=== PATIENT | male | born 1935 | race Caucasian/White ===

== ENCOUNTER 2019-08-01 12:13 | Outpatient (CLI) | payer BC, SELFPAY ==
[2019-08-01 12:50] LABS: Basophils % 0.5 %; Eosinophils % 0.2 %; Hematocrit 46.8 % (42.0-52.0); Hemoglobin 14.6 g/dL (11.7-16.6); Lymphocytes # 0.9 10^3/uL (0.8-4.8); Lymphocytes % 11.3 %; Mean Corpuscular HGB Conc 31.2 g/dL (30.0-36.0); Mean Corpuscular Hemoglobin 29.5 pg (28.0-34.0); Mean Corpuscular Volume 94.5 fL (80-94); Mean Platelet Volume 10.3 fL (7.4-10.4); Monocytes # 0.4 10^3/uL (0.2-0.9); Monocytes % 4.3 %; Neutrophils # 6.8 10^3/uL (1.8-7.7); Neutrophils % 83.3 %; Nucleated Red Blood Cells % 0 %; Platelet Count 175 10^3/cmm (130-400); Red Blood Count 4.95 10^6/uL (4.1-5.3); Red Cell Distribution Width 13.7 % (12.1-15.1); White Blood Count 8.2 10^3/uL (4.0-10.0)
[2019-08-01 13:32] LABS: Alanine Aminotransferase 16 U/L (0-41); Albumin Level 3.4 g/dL (3.5-5.2); Alkaline Phosphatase 73 IU/L (40-130); Aspartate Amino Transferase 17 U/L (0-40); Blood Urea Nitrogen 19 mg/dL (8-23); Calcium 9.3 mg/dL (8.5-10.5); Carbon Dioxide 22 mmol/L (22-29); Chloride 102 mmol/L (98-107); Free T4 Free Thyroxine 1.25 ng/dL (0.82-1.77); Globulin 3.2 g/dL (1.3-4.6); Glucose 251 mg/dL (65-115); Sodium 138 mmol/L (136-145); Thyroid Stimulating Hormone 2.38 uIU/mL (0.27-4.20); Total Bilirubin 0.3 mg/dL (0.15-1.2); Total Protein 6.6 g/dL (6.6-8.7)
== END 2019-08-01 12:14 | disposition home or self-care (01) ==
LOC: LAB 12:18
PROVIDERS: Family Provider Family Medicine; PCP Family Medicine; Visit Provider Family Medicine
DX: I10 Essential (primary) hypertension (principal)
CPT/HCPCS: 80053; 84439; 84443; 85025

== ENCOUNTER 2020-02-15 10:00 | Inpatient (IN) | payer MEDICARE, MEDICAID, SELFPAY ==
[2020-02-15] VITALS (10 sets, daily range): BP systolic 98–138; BP diastolic 52–98; PULSE 90–109; RESP 18–24; TEMP 36.4–37.3; O2SAT 94–99
--- NOTE | 2020-02-15 10:18 | XRR_ITS ---
PROCEDURE INFORMATION: Exam: XR Chest, 1 View Exam date and time: 02/15/2020 11:22 AM Age: 84 years old Clinical indication: Dyspnea; Additional info: Fall; SOB TECHNIQUE: Imaging protocol: XR of the chest Views: 1 view. COMPARISON: CR Chest 1 [place] [id number] 07/04/2017 9:03 AM FINDINGS: Lungs: Bilateral interstitial thickening, no acute consolidation. Pleural space: Unremarkable. No pleural effusion. No pneumothorax. Heart/Mediastinum: Minimal cardiomegaly versus magnification of the cardiac silhouette. Bones/joints: Old left clavicle fracture. XR/XR chest 1V portable [id number] IMPRESSION: No acute findings.
--- NOTE | 2020-02-15 10:19 | ECG_ITS ---
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 Measurements Intervals [place] Rate: 99 P: 71 ID: [id number] QRS: -20 QRSD: 158 T: 113 QT: 393 QTc: 506 Interpretive Statements SINUS RHYTHM LEFT BUNDLE BRANCH BLOCK [120+ ms QRS DURATION, 80+ ms Q/S IN V1/V2, 85+ ms R IN I/aVL/V5/V6] Compared to ECG 07/04/2017 08:47:41 Sinus tachycardia no longer present Electronically Signed On 02-15-2020 13:14:56 CDT by Denisse Lee M.D. [id number]
--- NOTE | 2020-02-15 10:20 | ED_ITS ---
HPI - General Adult General: Chief complaint: Fall Stated complaint: HEAD LAC S/P FALL Time Seen by Provider: 02/15/20 10:02 Source: patient, family and EMS Mode of arrival: EMS Limitations: altered mental status (dementia per ) History of Present Illness: HPI narrative: Patient is an 84-year-old male who presents to ED today via EMS for evaluation following a fall. There is conflicting stories between EMS and the . Upon arrival EMS gave report that patient had fallen out of his chair last night and then laid on the floor all night and was found by his this morning. When arrives, she tells me this is an accurate and patient fell this morning while trying to transfer out of his chair. He did strike his head but there was no LOC. Patient overall aroldo ears to be in poor health. states he has not seen a provider in over a year-states he refuses most medical care. She reports a history of CHF and HTN. Patient is alert and oriented to state, city, hospital, name, but not to date. states she suspects her has baseline dementia although this is not formally been diagnosed. Associated symptoms: Reports dyspnea and rash; Deny chest pain, headache(s), malaise, nausea, palpitations, syncope or vomiting Review of Systems Const: Denies: fever(s), chills, body aches, fatigue or malaise Eyes: Denies: change in vision or blurry vision ENMT: Denies: odynophagia Card: Reports: swelling of feet/ankles, dyspnea on exertion and orthopnea; Denies: chest pain, palpitations, irregular heart rhythm, edema, lightheadedness, syncope or pre-syncope Resp: Reports: dyspnea; Denies: productive cough, non-productive cough, pain on inspiration, change in phlegm color, hemoptysis or chest congestion GI: Denies: abdominal pain, nausea, vomiting or diarrhea : Denies: flank pain, difficulty urinating, dysuria, urinary frequency or urinary urgency Musc: Denies: neck pain, back pain, extremity pain, extremity swelling, joint pain or joint swelling Skin/Breast: Reports: rash Neuro: Reports: difficulty walking; Denies: headache(s), numbness in extremities, weakness in extremities or sensory changes Physical Exam Const: COMMON NORMALS: alert GENERAL APPEARANCE: cooperative NUTRITIONAL APPEARANCE: obese morbidly obese ORIENTATION/CONSCIOUSNESS: Yes awake, Yes oriented to person and Yes oriented to place OTHER: odorous HENMT: COMMON NORMALS: normocephalic, hearing grossly normal bilaterally, EAC's normal and TM's normal bilaterally HEAD & SCALP: normocephalic and other (mild abrasion to R occipital scalp) FACE & SINUS: normal facial exam and sinuses nontender EXTERNAL AUDITORY CANAL: EAC's normal TYMPANIC MEMBRANE: TM's normal bilaterally Eye: COMMON NORMALS: Equal, round and reactive pupils present, EOMs intact bilaterally, conjunctivae normal and no scleral icterus GENERAL EYE: appearance normal, both eyes and all related structures CONJUNCTIVA: Yes conjunctivae normal PUPIL: Yes Equal, round and reactive pupils present Neck/C-Spine: COMMON NORMALS: full ROM CERVICAL SPINE: Yes cervical ROM normal, No pain with cervical ROM and No Cervical spine tenderness Chest: COMMONS NORMALS: normal palpation of entire chest wall OTHER: small areas of ecchymosis noted to upper back and overlying R scapula; does not appear tender Resp: EFFORT & INSPECTION: Yes labored, Yes uses accessory muscles and Yes audible wheezes AUSCULTATION: wheezes scattered wheezes and throughout OTHER: states patient always breathes like this Cardio: COMMON NORMALS: regular rhythm RATE: tachycardic (mild) RHYTHM: regular rhythm GI: COMMON NORMALS: Normal to inspection, nondistended, normoactive bowel sounds present, Soft to palpation and non-tender PALPATION: Yes Soft to palpation OTHER: exam limited due to body habitus Extremity: OTHER: 2+ pitting edema to bilateral LEs Neuro: SHAHLA COMA SCALE: document GCS findings Shahla coma scale eye opening: Spontaneous [place] coma scale verbal response: Orientated Shahla coma scale motor response: Obey commands [place] coma scale total score: 15 COMMON NORMALS: CN's II-XII intact bilaterally, moves all extremities, no focal motor deficits and no sensory deficits noted SENSORIUM/ORIENTATION: Yes alert, Yes oriented to person and Yes oriented to place GAIT: Yes Unable to assess gait Skin: NARRATIVE SKIN EXAM: scattered ecchymosis to UEs and abdomen Course Vital Signs: Vital signs: Vital Signs Temperature 99.1 F 02/15/20 10:06 Pulse Rate 108 H 02/15/20 13:31 Respiratory Rate 18 02/15/20 13:31 Blood Pressure 138/77 02/15/20 13:31 Pulse Oximetry 96 02/15/20 13:31 MDM - General Adult MDM Narrative: Medical decision making narrative: Patient overall and very poor health. Clinically he is vastly fluid overloaded. He has a BNP of over 8000. Cardiomegaly noted on CXR. He was noted to be hypoxic on room air. He has a glucose of 182 with no established diagnosis of diabetes. Overall patient would benefit from hospitalization. Dr. Mccallum is also seen patient and agrees with plan. He will speak to the hospitalist for admission. Lab Data: Labs: Lab Results 02/15/20 02/15/20 02/15/20 Range/Units 10:28 10:58 11:09 WBC 12.2 H (4.0-10.0) 10^3/ uL RBC 4.66 (4.1-5.3) 10^6/u L Hgb 13.0 (11.7-16.6) g/dL Hct 44.2 (42.0-52.0) % MCV 94.8 H (80-94) fL MCH 27.9 L (28.0-34.0) pg MCHC 29.4 L (30.0-36.0) g/dL RDW 14.8 (12.1-15.1) % Plt Count 186 (130-400) 10^3/c mm MPV 10.3 (7.4-10.4) fL Neut % (Auto) 87.2 % Lymph % (Auto) 5.7 % [place] % (Auto) 6.1 % Eos % (Auto) 0.1 % Baso % (Auto) 0.2 % Neut # (Auto) 10.63 H (1.8-7.7) 10^3/u L Lymph # (Auto) 0.7 L (0.8-4.8) 10^3/u L [place] # (Auto) 0.7 (0.2-0.9) 10^3/u L Eos # (Auto) 0.0 (0.0-0.8) 10^3/u L Baso # (Auto) 0.0 (0.0-0.1) 10^3/u L Nucleated RBC % (a uto) 0 % Nucleated RBCs # 0.0 /100WBC PT (12.1-14.9) SECO NDS INR (0.8-1.2) APTT (23.9-36.7) SECO NDS Specimen Type Arterial Sample Site Radial, left ABG pH 7.45 (7.35-7.45) ABG pCO2 42.1 (35-45) mmHg ABG pO2 68.3 L (80.0-100.0) mmH g ABG HCO3 29.0 H (22-26) mmol/L ABG O2 Saturation 95.4 ABG Base Excess 4.5 H (-2.0-2.0) mmol/ L Abdullahi Test Pos A-a O2 Gradient 4.1 L (5-10) mmHg Hematocrit 41.4 L (42-52) % Hgb O2 Saturation 93.3 L (95-100) % Carboxyhemoglobin 1.5 (0.4-20.1) %THgb Methemoglobin 0.8 (0.4-1.5) % Total Hemoglobin 13.5 L (14-18) g/dL Sodium 141.0 (131-143) mmol/L Potassium 3.9 (3.5-5.0) mmol/L Glucose 189.0 H (70-115) mg/dL Ionized Calcium 1.2 (1.1-1.4) mmol/L O2 Delivery Device Room air On Site Services Specialist ID Gd Chloride (98-107) mmol/L Carbon Dioxide (22-29) mmol/L Anion Gap (5-19) BUN (8-23) mg/dL Creatinine (0.7-1.2) mg/dL GFR Calculation Calculated Osmolal ity (285-295) mOsm/k g Lactic Acid (0.5-2.2) mmol/L Calcium (8.5-10.5) mg/dL Total Bilirubin (0.15-1.2) mg/dL AST (0-40) U/L ALT (0-41) U/L Alkaline Phosphata se (40-130) IU/L Creatine Kinase (39-308) U/L Troponin T Baselin e (0-15) ng/L Troponin T 120 Min seminole (0-15) ng/L Delta Troponin T (0-10) ABS# NT-Pro-B Natriuret Pep (0-450) pg/mL Total Protein (6.6-8.7) g/dL Albumin (3.5-5.2) g/dL Globulin (1.3-4.6) g/dL Urine Color Dark yellow (Yellow) Urine Appearance Hazy A (CLEAR) Urine pH 5 (5-7) Ur Specific Gravit y 1.020 (1.005-1.030) Urine Protein Neg (Negative) Urine Glucose (UA) Norm (Normal) Urine Ketones 1+ H (Negative) Urine Blood 2+ H (Negative) Urine Nitrate Negative (Negative) Urine Bilirubin 1+ H (NEGATIVE) Urine Urobilinogen 4 H (Negative) mg/dL Ur Leukocyte Maria Alejandra ase Negative (Negative) Urine RBC 0-4 H (0-2) /hpf Urine WBC None (0-5) /hpf Ur Squamous Epith Cells None (0-5) Amorphous Sediment Not Reportable Urine Bacteria Trace (NONE) Urine Mucus 2+ 02/15/20 02/15/20 02/15/20 Range/Units 11:09 11:09 11:09 WBC (4.0-10.0) 10^3/ uL RBC (4.1-5.3) 10^6/u L Hgb (11.7-16.6) g/dL Hct (42.0-52.0) % MCV (80-94) fL MCH (28.0-34.0) pg MCHC (30.0-36.0) g/dL RDW (12.1-15.1) % Plt Count (130-400) 10^3/c mm MPV (7.4-10.4) fL Neut % (Auto) % Lymph % (Auto) % [place] % (Auto) % Eos % (Auto) % Baso % (Auto) % Neut # (Auto) (1.8-7.7) 10^3/u L Lymph # (Auto) (0.8-4.8) 10^3/u L [place] # (Auto) (0.2-0.9) 10^3/u L Eos # (Auto) (0.0-0.8) 10^3/u L Baso # (Auto) (0.0-0.1) 10^3/u L Nucleated RBC % (a uto) % Nucleated RBCs # /100WBC PT (12.1-14.9) SECO NDS INR (0.8-1.2) APTT (23.9-36.7) SECO NDS Specimen Type Sample Site ABG pH (7.35-7.45) ABG pCO2 (35-45) mmHg ABG pO2 (80.0-100.0) mmH g ABG HCO3 (22-26) mmol/L ABG O2 Saturation ABG Base Excess (-2.0-2.0) mmol/ L Abdullahi Test A-a O2 Gradient (5-10) mmHg Hematocrit (42-52) % Hgb O2 Saturation (95-100) % Carboxyhemoglobin (0.4-20.1) %THgb Methemoglobin (0.4-1.5) % Total Hemoglobin (14-18) g/dL Sodium 139 (131-143) mmol/L Potassium 3.9 (3.5-5.0) mmol/L Glucose 182 H (70-115) mg/dL Ionized Calcium (1.1-1.4) mmol/L O2 Delivery Device On Site Services Specialist ID Chloride 101 (98-107) mmol/L Carbon Dioxide 29 (22-29) mmol/L Anion Gap 12.9 (5-19) BUN 18 (8-23) mg/dL Creatinine 1.0 (0.7-1.2) mg/dL GFR Calculation Not Reportable Calculated Osmolal ity 289 (285-295) mOsm/k g Lactic Acid 1.9 (0.5-2.2) mmol/L Calcium 9.0 (8.5-10.5) mg/dL Total Bilirubin 0.8 (0.15-1.2) mg/dL AST 15 (0-40) U/L ALT 14 (0-41) U/L Alkaline Phosphata se 96 (40-130) IU/L Creatine Kinase 54 (39-308) U/L Troponin T Baselin e 69 H (0-15) ng/L Troponin T 120 Min seminole (0-15) ng/L Delta Troponin T (0-10) ABS# NT-Pro-B Natriuret Pep 8355 H (0-450) pg/mL Total Protein 6.3 L (6.6-8.7) g/dL Albumin 3.1 L (3.5-5.2) g/dL Globulin 3.2 (1.3-4.6) g/dL Urine Color (Yellow) Urine Appearance (CLEAR) Urine pH (5-7) Ur Specific Gravit y (1.005-1.030) Urine Protein (Negative) Urine Glucose (UA) (Normal) Urine Ketones (Negative) Urine Blood (Negative) Urine Nitrate (Negative) Urine Bilirubin (NEGATIVE) Urine Urobilinogen (Negative) mg/dL Ur Leukocyte Maria Alejandra ase (Negative) Urine RBC (0-2) /hpf Urine WBC (0-5) /hpf Ur Squamous Epith Cells (0-5) Amorphous Sediment Urine Bacteria (NONE) Urine Mucus 02/15/20 02/15/20 Range/Units 11:09 13:13 WBC (4.0-10.0) 10^3/ uL RBC (4.1-5.3) 10^6/u L Hgb (11.7-16.6) g/dL Hct (42.0-52.0) % MCV (80-94) fL MCH (28.0-34.0) pg MCHC (30.0-36.0) g/dL RDW (12.1-15.1) % Plt Count (130-400) 10^3/c mm MPV (7.4-10.4) fL Neut % (Auto) % Lymph % (Auto) % [place] % (Auto) % Eos % (Auto) % Baso % (Auto) % Neut # (Auto) (1.8-7.7) 10^3/u L Lymph # (Auto) (0.8-4.8) 10^3/u L [place] # (Auto) (0.2-0.9) 10^3/u L Eos # (Auto) (0.0-0.8) 10^3/u L Baso # (Auto) (0.0-0.1) 10^3/u L Nucleated RBC % (a uto) % Nucleated RBCs # /100WBC PT 14.40 (12.1-14.9) SECO NDS INR 1.08 (0.8-1.2) APTT 28.5 (23.9-36.7) SECO NDS Specimen Type Sample Site ABG pH (7.35-7.45) ABG pCO2 (35-45) mmHg ABG pO2 (80.0-100.0) mmH g ABG HCO3 (22-26) mmol/L ABG O2 Saturation ABG Base Excess (-2.0-2.0) mmol/ L Abdullahi Test A-a O2 Gradient (5-10) mmHg Hematocrit (42-52) % Hgb O2 Saturation (95-100) % Carboxyhemoglobin (0.4-20.1) %THgb Methemoglobin (0.4-1.5) % Total Hemoglobin (14-18) g/dL Sodium (131-143) mmol/L Potassium (3.5-5.0) mmol/L Glucose (70-115) mg/dL Ionized Calcium (1.1-1.4) mmol/L O2 Delivery Device On Site Services Specialist ID Chloride (98-107) mmol/L Carbon Dioxide (22-29) mmol/L Anion Gap (5-19) BUN (8-23) mg/dL Creatinine (0.7-1.2) mg/dL GFR Calculation Calculated Osmolal ity (285-295) mOsm/k g Lactic Acid (0.5-2.2) mmol/L Calcium (8.5-10.5) mg/dL Total Bilirubin (0.15-1.2) mg/dL AST (0-40) U/L ALT (0-41) U/L Alkaline Phosphata se (40-130) IU/L Creatine Kinase (39-308) U/L Troponin T Baselin e (0-15) ng/L Troponin T 120 Min [place]ole 59.52 H (0-15) ng/L Delta Troponin T -9.48 L (0-10) ABS# NT-Pro-B Natriuret Pep (0-450) pg/mL Total Protein (6.6-8.7) g/dL Albumin (3.5-5.2) g/dL Globulin (1.3-4.6) g/dL Urine Color (Yellow) Urine Appearance (CLEAR) Urine pH (5-7) Ur Specific Gravit y (1.005-1.030) Urine Protein (Negative) Urine Glucose (UA) (Normal) Urine Ketones (Negative) Urine Blood (Negative) Urine Nitrate (Negative) Urine Bilirubin (NEGATIVE) Urine Urobilinogen (Negative) mg/dL Ur Leukocyte Maria Alejandra ase (Negative) Urine RBC (0-2) /hpf Urine WBC (0-5) /hpf Ur Squamous Epith Cells (0-5) Amorphous Sediment Urine Bacteria (NONE) Urine Mucus Imaging Data^: CT Head: Radiologist's impression: [place] [address] CT Scan Report Signed Patient: Yesi Campos Unit #: [id number] : 1935 Age/Sex: 84 / M ADM Date: 02/15/20 Loc: ER Room/Bed: Attending Dr: Ordering Provider/Ordering MD: Penny Padilla Date of Service: 02/15/20 Procedure(s): CT head wo con* [id number] Accession Number(s): [id number] Report Number: [id number] PROCEDURE INFORMATION: Exam: CT Head Without Contrast Exam date and time: 02/15/2020 10:19 AM Age: 84 years old Clinical indication: Injury or trauma; Fall; Initial encounter; Blunt trauma (contusions or hematomas); Consciousness not specified; Injury date: This morning; Additional info: Trauma/fall TECHNIQUE: Imaging protocol: Computed tomography of the head without contrast. Radiation optimization: All CT scans at this facility use at least one of these dose optimization techniques: automated exposure control; mA and/or kV adjustment per patient size (includes targeted exams where dose is matched to clinical indication); or iterative reconstruction. COMPARISON: [place] [facility] [place] [id number] 04/12/2017 8:34 AM RADIATION DOSE METRICS: Total DLP (mGy-cm): 839.2 FINDINGS: Brain: No hemorrhage. Unremarkable white matter. No mass effect. Ventricles: Normal. No ventriculomegaly. Bones/joints: Postoperative change in the left skull. No acute fracture. Sinuses: No acute sinusitis. Mastoid air cells: Unremarkable. Soft tissues: Unremarkable. CT/CT head wo con* [id number] IMPRESSION: No acute intracranial abnormality. Radiation Dose CTDIVOL = (mGy): DLP = 839.2 (mGy-cm) Dictated By: Jamie Bonds MD Signed By: Jamie Bonds MD Signed Date/Time: 02/15/20 125 DD/ 57 CT cervical : Radiologist's impression: [address] [address] [address] Scan Report Signed Patient: Yesi Campos Unit #: [id number] : 1935 Age/Sex: 84 / M ADM Date: 02/15/20 Loc: ER Room/Bed: Attending Dr: Ordering Provider/Ordering MD: Penny Padilla Date of Service: 02/15/20 Procedure(s): CT cervical spin wo con* [id number] Accession Number(s): [id number] Report Number: [id number] PROCEDURE INFORMATION: Exam: CT Cervical Spine Without Contrast Exam date and time: 02/15/2020 10:19 AM Age: 84 years old Clinical indication: Injury or trauma; Fall; Initial encounter; Blunt trauma; Injury date: This morning; Additional info: Fall/trauma TECHNIQUE: Imaging protocol: Computed tomography images of the cervical spine without contrast. Radiation optimization: All CT scans at this facility use at least one of these dose optimization techniques: automated exposure control; mA and/or kV adjustment per patient size (includes targeted exams where dose is matched to clinical indication); or iterative reconstruction. COMPARISON: No relevant prior studies available. RADIATION DOSE METRICS: Total DLP (mGy-cm): 908.12 FINDINGS: Vertebrae: No acute fracture. Normal alignment. Discs/Spinal canal/Neural foramina: Multilevel degenerative disc disease, multilevel foraminal stenosis. Degenerative facet change. Soft tissues: Unremarkable. Lungs: Lung apices are normal. CT/CT cervical spin wo con* [id number] IMPRESSION: No cervical spine fracture. Radiation Dose CTDIVOL = (mGy): DLP = 908.12 (mGy-cm) Dictated By: Jamie Bonds MD Signed By: Jamie Bonds MD Signed Date/Time: 02/15/20 1304 DD/ 1302 CTA chest : Radiologist's impression: [place] [address] CT Scan Report Signed Patient: Yesi Campos Unit #: [id number] : 1935 Age/Sex: 84 / M ADM Date: 02/15/20 Loc: ER Room/Bed: Attending Dr: Ordering Provider/Ordering MD: Penny Padilla Date of Service: 02/15/20 Procedure(s): CT angio chest PE protcl [id number] Accession Number(s): [id number] Report Number: [id number] PROCEDURE INFORMATION: Exam: CT Angiography Chest With Contrast Exam date and time: 02/15/2020 12:22 PM Age: 84 years old Clinical indication: Shortness of breath; Additional info: SOB, cardiomegaly, chf; Possible mass on cxr TECHNIQUE: Imaging protocol: Computed tomographic angiography of the chest with intravenous contrast. 3D rendering (Not supervised by radiologist): MIP and/or 3D reconstructed images were created by the technologist. Radiation optimization: All CT scans at this facility use at least one of these dose optimization techniques: automated exposure control; mA and/or kV adjustment per patient size (includes targeted exams where dose is matched to clinical indication); or iterative reconstruction. Contrast material: OMNIPAQUE 350; Contrast volume: 95 ml; Contrast route: INTRAVENOUS (IV); COMPARISON: [place] [id number] 03/29/2017 2:56 PM RADIATION DOSE METRICS: Total DLP (mGy-cm): 589.95 FINDINGS: Pulmonary arteries: No pulmonary emboli. Aorta: No aortic aneurysm. Lungs: Unremarkable. No consolidation. No masses. Pleural space: No pleural effusion. No pneumothorax. Heart: Minimal cardiomegaly. No pericardial effusion. Lymph nodes: No significant adenopathy. Bones/joints: No acute findings. Soft tissues: 2.5 cm subcutaneous mass in the left upper anterior chest wall, increased from 03/29/2017, correlate with exam. CT/CT angio chest PE protcl [id number] IMPRESSION: No mass or acute findings. Additional findings as above. Radiation Dose CTDIVOL = (mGy): DLP = 589.95 (mGy-cm) Dictated By: Jamie Bonds MD Signed By: Jamie Bonds MD Signed Date/Time: 02/15/20 1303 DD/ 1302 EKG Data^: EKG 1: EKG interpretation date: 02/15/20 EKG interpretation time: 10:35 Interpretation: Sinus rhythm Rate 99 LBBB No acute changes from EKG performed on 06/2017 Computer generated interpretation: Cervical Spine CT 02/15/20 10:18 IMPRESSION: No cervical spine fracture. Radiation Dose CTDIVOL = (mGy): DLP = 908.12 (mGy-cm) Chest X-Ray 02/15/20 10:18 IMPRESSION: No acute findings. Head CT 02/15/20 10:18 IMPRESSION: No acute intracranial abnormality. Radiation Dose CTDIVOL = (mGy): DLP = 839.2 (mGy-cm) Chest CTA 02/15/20 12:21 IMPRESSION: No mass or acute findings. Additional findings as above. Radiation Dose CTDIVOL = (mGy): DLP = 589.95 (mGy-cm) Discharge Plan Discharge Patient Disposition: Admitted As Inpatient Clinical Impression: Blood glucose elevated, Hypoxia Congestive heart failure Qualifiers: Heart failure type: unspecified Heart failure chronicity: acute on chronic Qualified Code(s): I50.9 - Heart failure, unspecified Condition: Stable Referrals: Jimbo López MD [Primary Care Provider] - Coding Level of Care Code ED Tax Manager for Chg Fwd Exam Comprehensive
[2020-02-15 10:43] LABS: ABG PCO2 42.1 mmHg (35-45); ABG PH Result 7.45 (7.35-7.45); Alveolar-Arterial Oxygen Gradi 4.1 mmHg (5-10); Arterial Blood Gas Hematocrit 41.4 % (42-52); Base Excess ABG 4.5 mmol/L (-2.0-2.0); Blood Gas Allen Test Pos; Blood Gas Operator Identificat GD; Blood Gas Sample Site Radial, left; Blood Gas Sample Type Arterial; Carboxyhemoglobin 1.5 %THgb (0.4-20.1); HGB O2 Sat 93.3 % (95-100); Ionized Calcium Level - ABG 1.2 mmol/L (1.1-1.4); Methemoglobin 0.8 % (0.4-1.5); Oxygen Device ROOM AIR; Oxygen Saturation ABG 95.4; PO2 ABG 68.3 mmHg (80.0-100.0); Potassium Level - ABG 3.9 mmol/L (3.5-5.0); Total Hemoglobin 13.5 g/dL (14-18)
[2020-02-15] MEDS: ipratropium-albuterol 3 mL Neb INHALATION (10:45)
--- NOTE | 2020-02-15 11:12 | PC.NURSE ---
Arrived soiled with urine and stool. Noted Severe cynthia rash with skin break down all in the groin and dinora area. Cleaned and reposition pt. Notifed Penny Padilla NP of pt skin condition
[2020-02-15 11:26] LABS: Basophils % 0.2 %; Eosinophils % 0.1 %; Hematocrit 44.2 % (42.0-52.0); Lymphocytes # 0.7 10^3/uL (0.8-4.8); Lymphocytes % 5.7 %; Mean Corpuscular HGB Conc 29.4 g/dL (30.0-36.0); Mean Corpuscular Hemoglobin 27.9 pg (28.0-34.0); Mean Corpuscular Volume 94.8 fL (80-94); Mean Platelet Volume 10.3 fL (7.4-10.4); Monocytes # 0.7 10^3/uL (0.2-0.9); Monocytes % 6.1 %; Neutrophils # 10.63 10^3/uL (1.8-7.7); Neutrophils % 87.2 %; Nucleated Red Blood Cells % 0 %; Platelet Count 186 10^3/cmm (130-400); Red Blood Count 4.66 10^6/uL (4.1-5.3); Red Cell Distribution Width 14.8 % (12.1-15.1); White Blood Count 12.2 10^3/uL (4.0-10.0)
[2020-02-15 11:40] LABS: Urine Appearance Hazy (CLEAR); Urine Color Dark Yellow (Yellow); pH Urine 5 (5-7)
[2020-02-15 11:41] LABS: Add Urine Microscopic? YES; Bilirubin Urine 1+ (NEGATIVE); Blood Urine 2+ (Negative); Glucose Urine UA Norm (Normal); Ketones Urine 1+ (Negative); Leukocyte Esterase Urine Negative (Negative); Nitrate Urine Negative (Negative); Protein Urine Neg (Negative); RBC Urine 0-4 /hpf (0-2); Urobilinogen Urine 4 mg/dL (Negative)
[2020-02-15 11:42] LABS: Add Urine Culture? No; Bacteria Urine TRACE; Mucus Urine 2+
[2020-02-15 11:51] LABS: Lactic Sepsis W/Reflex 1.9 mmol/L (0.5-2.2); Troponin(5th) Baseline 69 ng/L (0-15)
[2020-02-15 11:57] LABS: Alanine Aminotransferase 14 U/L (0-41); Albumin Level 3.1 g/dL (3.5-5.2); Alkaline Phosphatase 96 IU/L (40-130); Anion Gap 12.9 (5-19); Aspartate Amino Transferase 15 U/L (0-40); Blood Urea Nitrogen 18 mg/dL (8-23); Carbon Dioxide 29 mmol/L (22-29); Chloride 101 mmol/L (98-107); Creatine Phosphokinase 54 U/L (39-308); Globulin 3.2 g/dL (1.3-4.6); Glucose 182 mg/dL (65-115); NT Pro B Type Natriuretic Pept 8355 pg/mL (0-450); Osmolality Calculated 289 mOsm/kg (285-295); Potassium 3.9 mmol/L (3.5-5.1); Sodium 139 mmol/L (136-145); Total Bilirubin 0.8 mg/dL (0.15-1.2); Total Protein 6.3 g/dL (6.6-8.7)
--- NOTE | 2020-02-15 12:07 | PC.NURSE ---
Resting in room , no acute distress noted.
--- NOTE | 2020-02-15 12:19 | ECG_ITS ---
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 Measurements Intervals [place] Rate: 99 P: SD: -1 QRS: -25 QRSD: 158 T: 112 QT: 401 QTc: 517 Interpretive Statements UNCERTAIN REGULAR RHYTHM LEFT BUNDLE BRANCH BLOCK [120+ ms QRS DURATION, 80+ ms Q/S IN V1/V2, 85+ ms R IN I/aVL/V5/V6] Compared to ECG 02/15/2020 10:35:45 Sinus rhythm no longer present Electronically Signed On 02-18-2020 17:41:21 CDT by Denisse Lee M.D. [id number]
--- NOTE | 2020-02-15 12:21 | CTR_ITS ---
PROCEDURE INFORMATION: Exam: CT Angiography Chest With Contrast Exam date and time: 02/15/2020 12:22 PM Age: 84 years old Clinical indication: Shortness of breath; Additional info: SOB, cardiomegaly, chf; Possible mass on cxr TECHNIQUE: Imaging protocol: Computed tomographic angiography of the chest with intravenous contrast. 3D rendering (Not supervised by radiologist): MIP and/or 3D reconstructed images were created by the technologist. Radiation optimization: All CT scans at this facility use at least one of these dose optimization techniques: automated exposure control; mA and/or kV adjustment per patient size (includes targeted exams where dose is matched to clinical indication); or iterative reconstruction. Contrast material: OMNIPAQUE 350; Contrast volume: 95 ml; Contrast route: INTRAVENOUS (IV); COMPARISON: [place] [id number] 03/29/2017 2:56 PM RADIATION DOSE METRICS: Total DLP (mGy-cm): 589.95 FINDINGS: Pulmonary arteries: No pulmonary emboli. Aorta: No aortic aneurysm. Lungs: Unremarkable. No consolidation. No masses. Pleural space: No pleural effusion. No pneumothorax. Heart: Minimal cardiomegaly. No pericardial effusion. Lymph nodes: No significant adenopathy. Bones/joints: No acute findings. Soft tissues: 2.5 cm subcutaneous mass in the left upper anterior chest wall, increased from 03/29/2017, correlate with exam. CT/CT angio chest PE protcl [id number] IMPRESSION: No mass or acute findings. Additional findings as above. Radiation Dose CTDIVOL = (mGy): DLP = 589.95 (mGy-cm)
[2020-02-15] MEDS: iohexol 350 mg/mL 100 mL Btl IV (13:03)
[2020-02-15 13:39] LABS: Troponin 5 2HR 59.52 ng/L (0-15)
[2020-02-15 14:12] LABS: INR 1.08 (0.8-1.2)
[2020-02-15 14:13] LABS: Partial Thromboplastin Time 28.5 SECONDS (23.9-36.7)
[2020-02-15] MEDS: FUROsemide 10 mg/mL SDV 4mL 40 MG IVP (14:53)
[2020-02-15 15:32] LABS: SARS Covid-2 Antigen Negative (Negative)
--- NOTE | 2020-02-15 16:19 | ECG_ITS ---
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 Measurements Intervals [place] Rate: 103 P: 129 [place]: 207 QRS: -5 QRSD: 158 T: 115 QT: 392 QTc: 515 Interpretive Statements SINUS TACHYCARDIA WITH OCCASIONAL SUPRAVENTRICULAR PREMATURE COMPLEXES LEFT BUNDLE BRANCH BLOCK [120+ ms QRS DURATION, 80+ ms Q/S IN V1/V2, 85+ ms R IN I/aVL/V5/V6] Compared to ECG 02/15/2020 12:58:58 No significant changes Electronically Signed On 02-17-2020 8:29:43 CDT by Denisse eLe M.D. [id number]
[2020-02-15 17:48] LABS: Glucose Point of Care 163 mg/dL (70-110)
--- NOTE | 2020-02-15 17:48 | PM.HP ---
Providers/Chief Complaint Admitting Physician: Dang Carlos MD Primary Care Provider: Jimbo López MD Chief Complaint: HEAD LAC S/P FALL History of Present Illness Yesi Campos is a 84 year old male with past medical history significant for CAD, CHF with last known EF ~30% from echo in 2017, on lasix 20mg at home, osteoarthritis, hypertension, diverticulosis brought to ER today by his with h/o worsening dyspnea over the last 2-3 weeks. Today while trying to get out of his recliner ,patient fell over and was too weak to get up again and was brought to ER. He has put on approx 30 pounds recently. On arrival at ER, his 02 sat was at 88%, up to 95% on 2lpm NC. BNP elevated at >8000. EKG shows wide QRS, no acute ST-T changes appreciable, tropinins mildly elevated but without significant delta. Review of Systems General: Reports: 10 or more systems reviewed and unremarkable except in HPI and below Const: Denies: fever(s), chills or body aches Eyes: Denies: change in vision, blurry vision or photophobia ENMT: Reports: hoarseness; Denies: throat pain, enlarged tonsils, odynophagia or nasal congestion Card: Denies: chest pain, palpitations, irregular heart rhythm, edema, swelling of feet/ankles, lightheadedness, pre-syncope, dyspnea on exertion or orthopnea Resp: Denies: dyspnea, productive cough, non-productive cough, wheezing, stridor, pain on inspiration, change in phlegm color, hemoptysis or chest congestion GI: Denies: abdominal pain, nausea, vomiting, hematemesis, coffee ground emesis, dysphagia, heartburn, diarrhea, constipation, GI cramping, change in stool character, hematochezia or melena : Denies: flank pain, dysuria, urinary frequency, urinary urgency, urinary hesitancy or hematuria Musc: Denies: neck pain, back pain, extremity pain, joint swelling, joint warmth or deformity Neuro: Denies: headache(s), numbness in extremities, weakness in extremities, sensory changes, difficulty walking, frequent falls, dizziness, vertigo, behavioral changes, Slurred speech present or seizure-like activity Psych: Denies: anxiety, depression, suicidal ideation or homicidal ideation Endo: Denies: polyuria, polydipsia, tired all the time, cold intolerance or hot flashes Elton/Lymph: Denies: easy bruising or easy bleeding Medications/Allergies Home Medications Medication Instructions Recorded Confirmed Last Taken Type aspirin 81 mg PO DAILY 02/15/20 02/15/20 02/15/20 History cholecalciferol (vitamin D3) 25 mcg PO DAILY 02/15/20 02/15/20 02/15/20 History [Vitamin D3] clopidogrel 75 mg PO DAILY 02/15/20 02/15/20 02/15/20 History ferrous gluconate 324 mg PO DAILY 02/15/20 02/15/20 02/15/20 History furosemide 20 mg PO EVERY OTHER DAY 02/15/20 02/15/20 02/15/20 History levothyroxine 25 mcg PO DAILY 02/15/20 02/15/20 02/15/20 History metoprolol succinate 25 mg PO BID 02/15/20 02/15/20 02/15/20 History oxycodone 5 mg PO BEDTIME 02/15/20 02/15/20 02/14/20 History pantoprazole 40 mg PO DAILY 02/15/20 02/15/20 02/15/20 History potassium chloride 10 meq PO DAILY 02/15/20 02/15/20 02/15/20 History pravastatin 80 mg PO DAILY 02/15/20 02/15/20 02/14/20 History prednisone 7.5 mg PO DAILY 02/15/20 02/15/20 02/15/20 History sertraline 50 mg PO DAILY 02/15/20 02/15/20 02/15/20 History tamsulosin 0.4 mg PO DAILY 02/15/20 02/15/20 02/15/20 History trazodone 50 mg PO BEDTIME 02/15/20 02/15/20 02/14/20 History Allergies Allergy/AdvReac Type Severity Reaction Status Date / Time No Known Allergies Allergy Verified 02/15/20 11:14 PFSH Acute PFSH: Medical History CAD (coronary artery disease) Combined systolic and diastolic congestive heart failure Congestive heart failure Hypertension Vitals/I&O/Wt Last Vital Signs Temp 97.6 F 09/05/20 16:42 Pulse 98 02/15/20 17:33 Resp 20 H 02/15/20 16:42 BP 126/76 02/15/20 16:42 Pulse Ox 96 02/15/20 17:33 Physical Exam Narrative: EXAM NARRATIVE: GEN: Awake, alert and oriented, no acute distress CVS: S1S2 N RS: CTA B/L Abd: Soft, nt/nd , bs+ BLOCK MASON: no focal neuro deficits Urinary Catheter Management^: Carpenter: Cath Placed During This Visit: yes Urinary Catheter Date of Insertion: 02/15/20 Urinary Catheter Time of Insertion: 10:10 Data : 02/15/20 11:09 02/15/20 11:09 Micro: Microbiology 02/15/20 12:10 Blood Culture - Preliminary Blood SPECIMEN COLLECTED 02/15/20 11:09 Blood Culture - Preliminary Blood SPECIMEN COLLECTED A&P Assessment and plan (1) Hypoxia: Status: Acute (2) Combined systolic and diastolic congestive heart failure: Status: Acute (3) Hypertension: Status: Acute (4) CAD (coronary artery disease): Status: Acute Additional A&P Information # Hypoxic respiratory failure which appears clinically to be most related to CHF exacerbation CTA chest without evidence of PE and consolidation no past h/o PE Not on suppelmental 02 at baseline # combined systolic and diastolic heart failure Last knoen EF from 2017 30% on echo, grade 3 diastolicdysfunction lasix 40mg iv q12h BNP >8000 strict I/O , daily weight echocardiogram to check EF currently # h/o CAD: continue ASA, plavix , B blockers DVT ppx: lovenox Full code Attestations Medical Necessity Statement*: anticipate >2MN admission for management for management of CHF Coding Level of Care Code Acute Bioinformatics Specialist for [facility] Fwd Diagnoses Hypoxia R09.02 Combined systolic and diastolic congestive heart failure I50.40 Hypertension I10 CAD (coronary artery disease) I25.10
[2020-02-15 17:54] LABS: Troponin 5 6HR 56.92 ng/L (0-15)
[2020-02-15 17:56] LABS: Troponin 5 6HR Delta -12.08 ng/L (0-12)
[2020-02-15] MEDS: metoprolol tartrate 25 mg Tablet PO (18:11)
[2020-02-15] MEDS: enoxaparin 40 mg/0.4 mL Syringe SUBCUT (18:11)
--- NOTE | 2020-02-15 20:42 | PC.NURSE ---
Patient's blood pressure is soft 98/52. Patient's nurse been notified.
[2020-02-15] MEDS: trazodone 50 mg Tablet PO (21:35)
--- NOTE | 2020-02-15 22:51 | PC.NURSE ---
SKIN ASSESSMENT Pt has numerous small and large bruises to body/extremities. Dark bruising to posterior right upper shoulder around to lateral chest area. Scabbed abrasion/laceration with bruising to right posterior head. Several bruises to arms. Bruise to lateral left leg, left ankle & foot. Dark red/excoriation to entire area in abd folds, perineal area, groins and scrotum. Also some excoriation under larm pits with left>right. Blanchable redness to medial sacral area. Some old fading bruises to abdomen
[2020-02-16] VITALS (7 sets, daily range): BP systolic 111–142; BP diastolic 62–80; PULSE 72–96; RESP 16–22; TEMP 36.3–37.6; O2SAT 94–98
[2020-02-16] MEDS: FUROsemide 10 mg/mL SDV 4mL 40 MG IVP ×2 (01:23→14:15)
--- NOTE | 2020-02-16 05:54 | PC.NURSE ---
SHIFT SUMMARY Has rested well tonight. Has been repositioned q2h. c/o back pain when is moved but afterwards does not c/o. Several skin issues and charted previously with several scattered bruises. Pitting edema to BLE and legs are weak. Has had 2525ml urine output from Carpenter cath this shift. Receiving IV Lasix. O2 in place at 3l per NC. Says SOB when he moves around. Has confusion but is pleasant. Knows where he is and tells me he fell in the floor at home and couldn't get up but says not really sure why he ended up in the hospital.
[2020-02-16 06:15] LABS: Basophils % 0.4 %; Eosinophils % 0.4 %; Hematocrit 39.9 % (42.0-52.0); Hemoglobin 12.1 g/dL (11.7-16.6); Lymphocytes # 0.9 10^3/uL (0.8-4.8); Lymphocytes % 9.7 %; Mean Corpuscular HGB Conc 30.3 g/dL (30.0-36.0); Mean Corpuscular Hemoglobin 27.6 pg (28.0-34.0); Mean Corpuscular Volume 91.1 fL (80-94); Monocytes # 0.8 10^3/uL (0.2-0.9); Neutrophils # 7.79 10^3/uL (1.8-7.7); Nucleated Red Blood Cells % 0 %; Platelet Count 164 10^3/cmm (130-400); Red Blood Count 4.38 10^6/uL (4.1-5.3); Red Cell Distribution Width 14.7 % (12.1-15.1); White Blood Count 9.6 10^3/uL (4.0-10.0)
[2020-02-16 06:50] LABS: Alanine Aminotransferase 11 U/L (0-41); Albumin Level 2.8 g/dL (3.5-5.2); Alkaline Phosphatase 79 IU/L (40-130); Anion Gap 13.4 (5-19); Aspartate Amino Transferase 14 U/L (0-40); Blood Urea Nitrogen 15 mg/dL (8-23); Calcium 8.7 mg/dL (8.5-10.5); Carbon Dioxide 31 mmol/L (22-29); Chloride 99 mmol/L (98-107); Globulin 3.2 g/dL (1.3-4.6); Glucose 161 mg/dL (65-115); Osmolality Calculated 290 mOsm/kg (285-295); Potassium 3.4 mmol/L (3.5-5.1); Sodium 140 mmol/L (136-145); Total Bilirubin 1.2 mg/dL (0.15-1.2)
[2020-02-16 06:51] LABS: Magnesium 1.9 mg/dL (1.7-2.3)
[2020-02-16] MEDS: predniSONE 5 mg Tablet 7.5 MG PO (08:18)
[2020-02-16] MEDS: levothyroxine 25 mcg Tablet PO (08:20)
[2020-02-16] MEDS: aspirin 81 mg Chew Tablet PO (08:20)
[2020-02-16] MEDS: metoprolol tartrate 25 mg Tablet PO ×2 (08:20→17:36)
[2020-02-16] MEDS: atorvastatin 40 mg Tablet 20 MG PO (08:21)
[2020-02-16] MEDS: clopidogrel 75 mg Tablet PO (08:21)
[2020-02-16] MEDS: pantoprazole DR 40 mg Tablet PO (08:21)
[2020-02-16] MEDS: tamsulosin 0.4 mg Capsule PO (08:22)
[2020-02-16] MEDS: sertraline 50 mg Tablet PO (08:22)
--- NOTE | 2020-02-16 10:02 | USCV_ITS ---
Yesi Campos Age: 84 Gender: M : 1935 Exam Date: 02/16/2020 12:44 Ordering Phys: Dang Carlos MD Technologist: Ashlee Ratliff Exam Location: [facility] – [place] Indication: Estimate EF, CHF BP: 142 / 78 HR: 85 Rhythm: Sinus Technical Quality: Technically difficult study MEASUREMENTS (Male / Female) Normal Values 2D ECHO LV Diastolic Diameter PLAX 4.3 cm 4.2 - 5.9 / 3.9 - 5.3 cm LV Systolic Diameter PLAX 4.1 cm LV Chamber Size 4.7 cm IVS Diastolic Thickness 1.3 cm 0.6 - 1.0 / 0.6 - 0.9 cm IVS Systolic Thickness 1.3 cm LVPW Diastolic Thickness 1.0 cm 0.6 - 1.0 / 0.6 - 0.9 cm LVPW Systolic Thickness 1.3 cm RV Chamber Size 2.9 cm LVOT Diameter 2.0 cm LV Ejection Fraction 2D Teich 9.7 % LA Diameter 4.0 cm LA Width 3.6 cm LA Height 6.3 cm RA Width 2.7 cm RA Height 4.5 cm Aorta at Sinotubular Diameter 2.3 cm M-MODE LV Diastolic Diameter MM 7.2 cm 4.2 - 5.9 / 3.9 - 5.3 cm LV Systolic Diameter MM 5.8 cm LV Ejection Fraction MM Teich 39.2 % IVS Diastolic Thickness MM 0.8 cm 0.6 - 1.0 / 0.6 - 0.9 cm IVS Systolic Thickness MM 1.4 cm LVPW Diastolic Thickness MM 1.1 cm 0.6 - 1.0 / 0.6 - 0.9 cm LVPW Systolic Thickness MM 1.4 cm RV Diastolic Diameter MM 0.9 cm Aortic Annulus Diameter 3.6 cm LA Ao Ratio MM 1.1 MV E Point Septal Separation 2.1 cm DOPPLER AV Peak Velocity 173.0 cm/s LVOT Peak Velocity 111.0 cm/s AV Area Cont Eq vti 2.2 cm squared AV Area Cont Eq pk 2.0 cm squared MV Area PHT 4.7 cm squared Mitral E to A Ratio 1.7 MV E' Velocity 6.0 cm/s Mitral E to MV E' Ratio 24.5 Mitral E to LV E' Lateral Ratio 20.9 Mitral E to LV E' Septal Ratio 29.7 TV Peak E Velocity 62.0 cm/s Right Atrial Pressure 8.0 mmHg PV Peak Velocity 60.0 cm/s RV Acceleration Time 0.1 s RV Ejection Time 0.3 s RV AcT/ET 0.3 FINDINGS Left Ventricle Moderately increased left ventricular cavity size. Severely decreased left ventricular systolic function. Left ventricular ejection fraction is estimated at 20-25%. Severe global hypokinesis. Grade II diastolic dysfunction, moderately elevated filling pressures. Abnormal septal motion consistent with conduction abnormality. Right Ventricle Normal right ventricular size and systolic function. Right Atrium Right atrium not well visualized. Normal right atrial size. Left Atrium Left atrium not well visualized. Mildly increased left atrial size. Mitral Valve Moderately thickened mitral valve. No mitral valve stenosis. Trace mitral valve regurgitation. Aortic Valve Thickened aortic valve. Moderate aortic valve calcification. Mild aortic valve stenosis, mean gradient 6.4 mmHg, JOSSUE 2.2 cm squared. Aortic valve visually appears to have moderate stenosis. Tricuspid Valve Structurally normal tricuspid valve. Trace tricuspid valve regurgitation. Pulmonic Valve Pulmonic valve not well visualized. Pericardium No pericardial effusion. Aorta Aorta not well visualized. CONCLUSIONS 1. Moderately increased left ventricular cavity size. Severely decreased left ventricular systolic function. Left ventricular ejection fraction is estimated at 20-25%. Severe global hypokinesis. Grade II diastolic dysfunction, moderately elevated filling pressures. 2. Normal right ventricular size and systolic function. 3. Aortic valve visually appears to have moderate stenosis. Mild aortic valve stenosis, mean gradient 6.4 mmHg, JOSSUE 2.2 cm squared by continuity equation. 4. When compared to previous echocardiogram dated 05/18/2017, there may not have been any significant change. Denisse Lee MD (Electronically Signed) Final Date: 16 February 2020 18:56 S
--- NOTE | 2020-02-16 10:02 | USR_ITS ---
PROCEDURE INFORMATION: Exam: US Duplex Lower Extremity Veins, Bilateral Exam date and time: 02/16/2020 10:06 AM Age: 84 years old Clinical indication: Edema, localized; Lower extremity, bilateral; Additional info: Evaluate for dvt TECHNIQUE: Imaging protocol: Real-time duplex ultrasound of the extremities with 2-D to scale, color Doppler flow and spectral waveform analysis with image documentation. Complete exam focused on the bilateral lower extremity veins. COMPARISON: No relevant prior studies available. FINDINGS: Right deep veins: Arterialized venous flow appears to be present in the right profundus femoris vein. Antegrade flow in the right common femoral vein. Echogenic nonshadowing wall thickening of the right mid-proximal superficial femoral vein which is compressible. The distal right superficial femoral vein is not well identified in the region of the adductor hiatus. The right popliteal vein is unremarkable. The right peroneal vein is patent. The right posterior tibial vein demonstrates antegrade color Doppler flow.. Right superficial veins: Saphenofemoral junction is patent without thrombus. Left deep veins: The distal left superficial femoral vein is not well identified in the region of the adductor hiatus. Membranous intraluminal echoes are present in the compressible left common femoral vein which demonstrates preserved flow. The left popliteal vein is unremarkable. The left peroneal vein appears patent. The lobe posterior tibial vein is patent. Left superficial veins: Saphenofemoral junction is patent without thrombus. Soft tissues: Soft tissue edema. US/[place] [id number] IMPRESSION: 1. 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 If clinical suspicion for acute DVT remains high, a follow-up examination in 3 days may be helpful. 2. Arterialized right profundus femoris vein waveform, a small arteriovenous fistula is not excluded, but not directly visualized.
--- NOTE | 2020-02-16 10:02 | XRR_ITS ---
PROCEDURE INFORMATION: Exam: XR Left Ankle Exam date and time: 02/16/2020 10:21 AM Age: 84 years old Clinical indication: Injury or trauma; Fall; Initial encounter; Blunt trauma; Ankle; Bilateral; Injury details: PT poor historian; Per documents fell 02/15/2020; Additional info: Pain, swelling, concern for fracture TECHNIQUE: Imaging protocol: XR Left ankle. Views: Frontal and lateral views. COMPARISON: No relevant prior studies available. FINDINGS: Bones/joints: No acute bony abnormality identified. A small plantar calcaneal ossified spur is present. A small Achilles' tendon enthesis of the calcaneus is present. Soft tissues: Medial lower leg predominant soft tissue swelling. Moderate lateral malleolar soft tissue swelling. Vasculature: Vascular calcifications are present. XR/XR ankle LT 2V [id number] IMPRESSION: 1. No acute bony injury identified. 2. Plantar calcaneal spur. 3. Achilles tendon insertional enthesopathy.
--- NOTE | 2020-02-16 10:02 | XRR_ITS ---
PROCEDURE INFORMATION: Exam: XR Right Ankle Exam date and time: 02/16/2020 10:06 AM Age: 84 years old Clinical indication: Injury or trauma; Fall; Initial encounter; Blunt trauma; Ankle; Bilateral; Injury details: PT poor historian; Per documents fell 02/15/2020; Additional info: Pain, swelling, concern ffor fracture TECHNIQUE: Imaging protocol: XR Right ankle. Views: Frontal and lateral views. COMPARISON: CR Ankle 3 views, RIGHT* [id number] 04/13/2016 7:37 AM FINDINGS: Bones/joints: No acute bony abnormality identified. Jane small Achilles' tendon enthesis of the calcaneus is present. A small plantar calcaneal ossified spur is present. Soft tissues: Medial lower leg predominant soft tissue swelling. Vasculature: Vascular calcifications are present. XR/XR ankle RT 2V [id number] IMPRESSION: 1. No acute bony injury identified. 2. Achilles tendon insertional enthesopathy. 3. Plantar calcaneal spur.
--- NOTE | 2020-02-16 11:07 | PC.CHAP ---
Pastoral Care Encounter/Spiritual Assessment Type of Contact [] Declined government affairs specialist visit [] Patient/Family/Request visit [] Outpatient visit [] Follow-up visit [] Physician referral [] Code/Alert [] Routine visit [] Staff referral [] Actively dying [xx] Patient sleeping [] Family support [] [] Out of room [] Palliative care [] [] Receiving care in room [] Pre-surgical visit [] Trauma [] Long length of stay [] ICU visit [] Other: Relational/Emotional Strength [] Patient feels connected with others/family/visitors/staff [] Distress [] Loneliness/isolation [] Abandonment Spirituality of Patient [] Person of Raquel [] Attends Buddhism of their Raquel [] Believes in Prayer [] Reads Bible or Latter-Day materials [] There are Spiritual issues to be addressed Belt Knife Feeder Interventions [] Prayer [] Active listening [] Non-anxious presence [] Spiritual/emotional support [] Crisis/trauma care [] Spiritual counseling [] Bereavement support [] Provided bereavement packet [] Provided Bible/devotional materials [] Provided toy/stuffed animal, coloring book to patient or family member [] Provided Communion [] Anointing/[place] [] Salvation [] Completed spiritual assessment [] Other: Impact on Illness or Injury [] Angry [] Fearful [] Anxious [] Often cries [] Exhaustion [] Unable to work [] Unable to attend mandaen [] Unable to walk/stand [] Unable to read [] Unable to drive [] Unable to eat/drink [] Unable to sleep [] Unable to be with family [] Patient intubated [] Other: Summary Time spent with patient
--- NOTE | 2020-02-16 11:56 | P.PN_ITS ---
Subjective Subjective: Interval history: patient continues to be weak, however awake and alert. Complains of intense pain over his left ankle today. Leukocytosis resolved at 9.6 Medications: Reviewed: Yes Vitals/I&O/Wt Last Vital Signs Temp 97.9 F 02/16/20 11:32 Pulse 96 02/16/20 11:32 Resp 22 H 02/16/20 11:32 BP 130/70 02/16/20 11:32 Pulse Ox 98 02/16/20 11:32 02/15/20 02/16/20 02/16/20 22:59 06:59 14:59 Intake Total 532 / 532 360 / 892 240 / 240 Output Total 2525 / 2525 300 / 300 Balance 532 / 532 -2165 / -1633 -60 / -60 Weight last 48 hrs Weight 125.827 kg Weight 124.647 kg Physical Exam Narrative: EXAM NARRATIVE: GEN: Awake, alert and oriented, no acute distress, overall chronically ill and deconditioned appearing man CVS: S1S2 N RS: CTA B/L Abd: Soft, nt/nd , bs+ 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 : extensive candidiasis noted in bilateral groin folds, extending to the scrotum and also over bilateral axilla Urinary Catheter Management^: Carpenter: Cath Placed During This Visit: yes Reason for Continuing Indwelling Catheter: Accurate Measurement of Urinary Output in Critically Ill Patients Urinary Catheter Date of Insertion: 02/15/20 Urinary Catheter Time of Insertion: 10:10 Data : 02/16/20 05:50 02/16/20 05:50 Micro: Microbiology 02/15/20 11:09 Blood Culture - Preliminary Blood NEGATIVE TO DATE 02/15/20 12:10 Blood Culture - Preliminary Blood SPECIMEN COLLECTED A&P Assessment and plan (1) Hypoxia: Status: Acute (2) Combined systolic and diastolic congestive heart failure: Status: Acute (3) Hypertension: Status: Acute (4) CAD (coronary artery disease): Status: Acute Additional A&P Information # Hypoxic respiratory failure which appears clinically to be most related to CHF exacerbation CTA chest without evidence of PE or consolidation Currently saturating 98% on 4lpm NC B/L LE 3+ pitting edema # Combined systolic and diastolic heart failure Last known EF from 2017 30% on echo, grade 3 diastolic dysfunction lasix 40mg iv q12h to continue, urine output 2.8L, net negative 1.6L BNP >8000 upon admission strict I/O , daily weight echocardiogram to check EF currently EKG with LBBB without acute ST-T wave changes Troponin mildly elevated, however without any significant deltas # h/o CAD: continue ASA, plavix , B blockers # significant candidiasis affecting B/L armpits and groin, start clotrimazole ointment and nystatin powder. Avoiding fluconazole due to prolonged QTc interval of 516. No overt signs of cellulitis, patient is currently afebrile. Leukocytos is noted yesterday to be 12, resolved without any directed treatment. # ankle pain: check X ray, check LE duplex DVT ppx: lovenox GOC discussion with patient and on the phone: states that he has advanced directives compatible with DNR/DNI, code status changed to AND in accordance Dispo: consult social insurance analyst, patient has been falling more recently, appears overall deconditioned, PT/OT assessment once x ray ankle is done Attestations Medical Necessity Statement*: ongoing need for iv diuersis, PT/OT assessment, dispo planning Coding Level of Care Code Acute Site Physician for [facility] Fwd Diagnoses Hypoxia R09.02 Combined systolic and diastolic congestive heart failure I50.40 Hypertension I10 CAD (coronary artery disease) I25.10
[2020-02-16] MEDS: potassium chloride oral liq 20 mEq/15 mL UDC 40 MEQ PO (12:14)
[2020-02-16 13:08] LABS: Procalcitonin 0.08 ng/mL (0-0.5)
[2020-02-16] MEDS: enoxaparin 40 mg/0.4 mL Syringe SUBCUT (17:37)
[2020-02-16] MEDS: nystatin powder 15 gm Btl 1 APPLIC TOPICAL (17:59)
[2020-02-16] MEDS: clotrimazole 1% cream 30 gm 1 APPLIC TOPICAL (18:00)
[2020-02-16] MEDS: trazodone 50 mg Tablet PO (21:03)
[2020-02-16] MEDS: oxyCODONE 5 mg IR Tab/Cap PO (21:03)
[2020-02-17] VITALS (7 sets, daily range): BP systolic 101–159; BP diastolic 64–88; PULSE 76–99; RESP 16–19; TEMP 36.1–37.1; O2SAT 92–98; BMI 44.7
[2020-02-17] MEDS: FUROsemide 10 mg/mL SDV 4mL 40 MG IVP ×2 (01:42→14:26)
[2020-02-17 05:38] LABS: Basophils % 0.4 %; Eosinophils # 0.1 10^3/uL (0.0-0.8); Eosinophils % 0.9 %; Hematocrit 39.5 % (42.0-52.0); Lymphocytes # 0.8 10^3/uL (0.8-4.8); Lymphocytes % 8.7 %; Mean Corpuscular HGB Conc 30.4 g/dL (30.0-36.0); Mean Corpuscular Hemoglobin 28.2 pg (28.0-34.0); Mean Corpuscular Volume 92.9 fL (80-94); Mean Platelet Volume 10.2 fL (7.4-10.4); Monocytes # 0.7 10^3/uL (0.2-0.9); Monocytes % 7.8 %; Neutrophils # 7.77 10^3/uL (1.8-7.7); Neutrophils % 81.9 %; Nucleated Red Blood Cells % 0 %; Platelet Count 160 10^3/cmm (130-400); Red Blood Count 4.25 10^6/uL (4.1-5.3); Red Cell Distribution Width 14.6 % (12.1-15.1); White Blood Count 9.5 10^3/uL (4.0-10.0)
--- NOTE | 2020-02-17 05:39 | PC.NURSE ---
SHIFT SUMMARY Continues to have some confusion but is very pleasant. Has been repositioned during shift. c/o back pain with movement. Redness/excoration to areas of abd folds, perineal/groin areas and scrotum looks some better. Using Nystatin powder and antifungal creams. 875ml urine output this shift from Carpenter. Cotinues with pitting edema to BLE. Severa areas of dark bruising to left leg, foot & ankle, arms, right posterior back and into shoulder. Scabbed abrasion/laceration to right posterior head with bruising.
[2020-02-17 06:02] LABS: Alanine Aminotransferase 11 U/L (0-41); Albumin Level 2.7 g/dL (3.5-5.2); Alkaline Phosphatase 79 IU/L (40-130); Anion Gap 11.6 (5-19); Aspartate Amino Transferase 12 U/L (0-40); Blood Urea Nitrogen 16 mg/dL (8-23); Calcium 8.8 mg/dL (8.5-10.5); Carbon Dioxide 34 mmol/L (22-29); Chloride 96 mmol/L (98-107); Globulin 3.2 g/dL (1.3-4.6); Glucose 203 mg/dL (65-115); Osmolality Calculated 288 mOsm/kg (285-295); Potassium 3.6 mmol/L (3.5-5.1); Sodium 138 mmol/L (136-145); Total Protein 5.9 g/dL (6.6-8.7)
[2020-02-17] MEDS: atorvastatin 40 mg Tablet 20 MG PO (07:52)
[2020-02-17] MEDS: metoprolol tartrate 25 mg Tablet PO ×2 (07:52→17:28)
[2020-02-17] MEDS: clopidogrel 75 mg Tablet PO (07:53)
[2020-02-17] MEDS: tamsulosin 0.4 mg Capsule PO (07:53)
[2020-02-17] MEDS: aspirin 81 mg Chew Tablet PO (07:53)
[2020-02-17] MEDS: pantoprazole DR 40 mg Tablet PO (07:54)
[2020-02-17] MEDS: predniSONE 5 mg Tablet 7.5 MG PO (07:54)
[2020-02-17] MEDS: levothyroxine 25 mcg Tablet PO (07:55)
[2020-02-17] MEDS: potassium chloride oral liq 20 mEq/15 mL UDC 40 MEQ PO (07:55)
--- NOTE | 2020-02-17 09:13 | XRR_ITS ---
PROCEDURE INFORMATION: Exam: XR Lumbosacral Spine, 2 or 3 Views Exam date and time: 02/17/2020 12:14 PM Age: 84 years old Clinical indication: Low back pain; Additional info: Back pain with being moved after fall TECHNIQUE: Imaging protocol: XR of the lumbosacral spine, 2 or 3 views. COMPARISON: CT abdomen pelvis w con* [id number] 04/18/2018 1:06 PM FINDINGS: Vertebrae: No acute fracture evident. Mild lumbar levoscoliosis, unchanged. Generalized lumbar degenerative disc changes including disc space narrowing, vacuum phenomenon, endplate irregularity and vertebral body spurring, chronic. Soft tissues: Unremarkable. XR/XR lumbar spine 2-3V* [id number] IMPRESSION: No acute fracture evident. Chronic degenerative disc/spondylosis changes.
--- NOTE | 2020-02-17 09:14 | PM.PN ---
Subjective Subjective: Interval history: When asked about any pain, denies having pain, denies shortness of breath, no chest pain. When asked if legs are bothering him, reports pain in the distal lower left leg. Vitals/I&O/Wt Last Vital Signs Temp 97.0 F L 02/17/20 07:24 Pulse 93 02/17/20 07:24 Resp 18 02/17/20 07:24 BP 118/69 02/17/20 07:24 Pulse Ox 96 02/17/20 07:24 02/16/20 02/17/20 02/17/20 22:59 06:59 14:59 Intake Total 240 / 840 240 / 1080 Output Total 1500 / 1800 875 / 2675 Balance -1260 / -960 -635 / -1595 Weight last 48 hrs Weight 125.827 kg Weight 124.647 kg Physical Exam Const: COMMON NORMALS: no acute distress and alert ORIENTATION/CONSCIOUSNESS: Yes awake OTHER: Hard of hearing. Sluggish responses which appears to be his baseline. HENMT: COMMON NORMALS: oropharynx normal Neck/C-Spine: COMMON NORMALS: no JVD Chest: OTHER: Nodule with superficial healed scar in left upper chest, subcutaneous nodule is probably 3 x 2 cm. Somewhat hard, mobile, nontender, without overlying erythema or skin swelling. Resp: COMMON NORMALS: normal respiratory effort (On 3 L nasal cannula) and clear to auscultation bilaterally AUSCULTATION: clear to auscultation bilaterally Cardio: COMMON NORMALS: no JVD, regular rhythm, S1 normal heart sound present, S2 normal heart sound present and No murmurs present (Cardio) RHYTHM: regular rhythm HEART SOUNDS: S1 normal heart sound present and S2 normal heart sound present GI: COMMON NORMALS: Normal to inspection, nondistended, normoactive bowel sounds present, Soft to palpation and non-tender PALPATION: Yes Soft to palpation Extremity: COMMON NORMALS: no joint enlargement GENERAL: Yes edema (4+ LE bilat gradually decreasing proximally, and reaching up to mid thigh on the legs) Neuro: COMMON NORMALS: moves all extremities SENSORIUM/ORIENTATION: Yes alert Skin: RASHES: rashes noted (Axillary and groin rashes) Urinary Catheter Management^: Carpenter: Cath Placed During This Visit: yes Reason for Continuing Indwelling Catheter: Accurate Measurement of Urinary Output in Critically Ill Patients Urinary Catheter Date of Insertion: 02/15/20 Urinary Catheter Time of Insertion: 10:10 Data : 02/17/20 05:04 02/17/20 05:04 Micro: Microbiology 02/15/20 12:10 Blood Culture - Preliminary Blood NEGATIVE TO DATE 02/15/20 11:09 Blood Culture - Preliminary Blood NEGATIVE TO DATE A&P Assessment and plan (1) Hypoxia: Secondary to CHF. No PE or pneumonia noted on CTA. In negative balance. Continue diuresis for anasarca with IV Lasix. 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 Also perhaps mild aortic stenosis noted on echocardiogram. CAD is reported, but patient is not aware of history of stenting or [place]. Is on aspirin and Plavix currently. His is also not aware of him having a heart attack or stroke. Reportedly has not seen a electricians top helper, but overall has been very difficult to get to adhere to any medical care or get any medical assessment despite severely declining health. Discussed with his low ejection fraction, risk of complications secondary to CHF, risk of possibly progression of CHF, as well as risk of arrhythmia and possibly sudden secondary to low EF. Discussed possibility of additional more invasive assessment by cardiology, as well as possibility of LifeVest, possibility of defibrillator going forward. Per discussion with his he has not been agreeable to even minimal interventions, and could barely agree to go to the hospital this time. His son had gotten him a life alert button previously to try to call for help, and he would not even aware that, taking it off after just a short time. Per discussion with his a LifeVest would not be something that he would keep on. At this time due to concern for underlying coronary disease, will continue medical treatment and is agreeable to try to refer him to cardiology if he will agree for an outpatient visit after discharge. She understands that as she reports she has been very non-mobile at home, with underlying severe comorbidities with CHF, with multiple recent falls and hitting his head, poor candidacy for anticoagulation and with now possibility of old VTE versus new clot, as well as lack of interest/reluctance in receiving any more aggressive medical treatment his overall prognosis is likely not good. Status: Acute (3) Hypertension: Currently at goal Status: Acute (4) CAD (coronary artery disease): Patient and report that were told about coronary disease, but have not seen a electricians top helper, is not aware of having TN in the past, and never had any stents placed. As above, due to limited goals of care at this time continue medical treatment, if will agree to follow-up, refer to outpatient assessment with cardiology. Status: Acute Additional A&P Information Subcutaneous mass left anterior upper chest: reports history of cystic lesion area which previously underwent I&D. This is reported increased on CT scan since 2017. Discussed with patient and his . They may need to follow-up with PCP, possibly surgery for reassessment, monitoring, possibly excision. No overlying signs of infection. Significant candidiasis affecting B/L armpits and groin, start clotrimazole ointment and nystatin powder. Avoiding fluconazole due to prolonged QTc interval of 516. No overt signs of cellulitis, patient is currently afebrile. Leukocytosis noted yesterday to be 12, resolved without any directed treatment. Ankle pain: Left ankle pain. Has bilateral swelling. Left ankle x-ray with plantar calcaneal spur as well as Achilles tendon insertional enthesopathy perhaps contributing to his pain. 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 As discussed with his he is certainly at high risk of developing VTE, although this may not be acute. No PE noted on CTA. Still due to elevated risk going forward would continue at least prophylaxis as currently until he may become more mobile. Long-term decision may be more difficult given he is at elevated risk of falls, with multiple recent falls, including hitting his lower head/upper rear neck on a corner of a table. At home has been walking with a cane, but recently has been increasingly less mobile. He is at high risk of falling again, with potential injury and bleeding. Discussed with his potential number of strategies. Discussed that we may reassess duplex in several days as recommended by radiology to see if in fact this may be a chronic clot, and continue at this time prophylactic anticoagulant dose. Discussed risks of VTE progression, PE, decompensation, and possible life-threatening events that may happen in case of acute thromboembolism. She understands the risks. Given limited goals of care placement of IVC filter is not the best option at this time, but may be reconsidered again depending on his progress with remobilization. At this time given high risk of falls preference is not to yet start anticoagulation. For now continue prophylactic anticoagulation, and will need prolonged course after discharge. Incidentally noted arterialized right profunda femoris vein waveform on duplex. Small AV fistula is not excluded. Attestations Medical Necessity Statement*: Continue admission for management of CHF exacerbation, anasarca, hypoxia, disposition planning. 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
[2020-02-17] MEDS: sertraline 50 mg Tablet PO (10:24)
[2020-02-17] MEDS: clotrimazole 1% cream 30 gm 1 APPLIC TOPICAL ×2 (10:25→18:30)
[2020-02-17] MEDS: nystatin powder 15 gm Btl 1 APPLIC TOPICAL ×2 (10:26→18:30)
--- NOTE | 2020-02-17 15:51 | PC.NURSE ---
Alert and Oriented. Rash appears to be improving. Applied nystatin and lotrimin. Turned and repositioned q2h. Pt still having pain with back and with movement to left leg. Pt has been resting comfortably majority of day.
[2020-02-17] MEDS: enoxaparin 40 mg/0.4 mL Syringe SUBCUT (17:28)
[2020-02-17] MEDS: oxyCODONE 5 mg IR Tab/Cap PO (21:58)
[2020-02-17] MEDS: trazodone 50 mg Tablet PO (21:58)
[2020-02-18] VITALS (9 sets, daily range): BP systolic 98–136; BP diastolic 60–82; PULSE 74–90; RESP 14–20; TEMP 36.6–37.2; O2SAT 91–100
[2020-02-18] MEDS: FUROsemide 10 mg/mL SDV 4mL 40 MG IVP ×2 (02:04→13:53)
[2020-02-18 05:06] LABS: Basophils % 0.4 %; Eosinophils # 0.1 10^3/uL (0.0-0.8); Eosinophils % 1.4 %; Hematocrit 39.2 % (42.0-52.0); Hemoglobin 11.8 g/dL (11.7-16.6); Lymphocytes # 0.9 10^3/uL (0.8-4.8); Lymphocytes % 11.2 %; Mean Corpuscular HGB Conc 30.1 g/dL (30.0-36.0); Mean Corpuscular Hemoglobin 27.5 pg (28.0-34.0); Mean Corpuscular Volume 91.4 fL (80-94); Mean Platelet Volume 10.3 fL (7.4-10.4); Monocytes # 0.7 10^3/uL (0.2-0.9); Monocytes % 8.3 %; Neutrophils # 6.53 10^3/uL (1.8-7.7); Neutrophils % 78.1 %; Nucleated Red Blood Cells % 0 %; Platelet Count 184 10^3/cmm (130-400); Red Blood Count 4.29 10^6/uL (4.1-5.3); Red Cell Distribution Width 14.3 % (12.1-15.1); White Blood Count 8.4 10^3/uL (4.0-10.0)
[2020-02-18 05:31] LABS: Alanine Aminotransferase 12 U/L (0-41); Albumin Level 2.5 g/dL (3.5-5.2); Alkaline Phosphatase 78 IU/L (40-130); Anion Gap 12.6 (5-19); Aspartate Amino Transferase 17 U/L (0-40); Blood Urea Nitrogen 16 mg/dL (8-23); Calcium 8.8 mg/dL (8.5-10.5); Carbon Dioxide 35 mmol/L (22-29); Chloride 94 mmol/L (98-107); Globulin 3.5 g/dL (1.3-4.6); Glucose 149 mg/dL (65-115); Osmolality Calculated 285 mOsm/kg (285-295); Potassium 3.6 mmol/L (3.5-5.1); Sodium 138 mmol/L (136-145)
[2020-02-18] MEDS: pantoprazole DR 40 mg Tablet PO (08:18)
[2020-02-18] MEDS: tamsulosin 0.4 mg Capsule PO (08:18)
[2020-02-18] MEDS: metoprolol tartrate 25 mg Tablet PO ×2 (08:18→17:28)
[2020-02-18] MEDS: levothyroxine 25 mcg Tablet PO (08:19)
[2020-02-18] MEDS: sertraline 50 mg Tablet PO (08:19)
[2020-02-18] MEDS: predniSONE 5 mg Tablet 7.5 MG PO (08:19)
[2020-02-18] MEDS: aspirin 81 mg Chew Tablet PO (08:19)
[2020-02-18] MEDS: potassium chloride oral liq 20 mEq/15 mL UDC 40 MEQ PO (08:19)
[2020-02-18] MEDS: clopidogrel 75 mg Tablet PO (08:19)
[2020-02-18] MEDS: atorvastatin 40 mg Tablet 20 MG PO (08:26)
[2020-02-18] MEDS: clotrimazole 1% cream 30 gm 1 APPLIC TOPICAL ×2 (09:12→18:12)
[2020-02-18] MEDS: nystatin powder 15 gm Btl 1 APPLIC TOPICAL ×2 (09:13→18:11)
--- NOTE | 2020-02-18 09:16 | PC.NURSE ---
Linens changed, PT in room with patient, assisted off bedside commode via gait belt X2 moderate assistance, repositioned in bed, placed call light in reach, refused breakfast despite nursing encouragement.
--- NOTE | 2020-02-18 09:20 | PC.SOCIAL ---
IMM Update Pg. 2 of IMM updated and copy provided to patient.
[2020-02-18] MEDS: oxyCODONE 5 mg IR Tab/Cap PO (12:38)
--- NOTE | 2020-02-18 12:39 | P.PN_ITS ---
Vitals/I&O/Wt Last Vital Signs Temp 98.4 F 02/18/20 11:18 Pulse 84 02/18/20 11:18 Resp 14 02/18/20 12:38 BP 130/69 02/18/20 11:18 Pulse Ox 95 02/18/20 12:38 02/17/20 02/18/20 02/18/20 22:59 06:59 14:59 Intake Total 340 / 1040 Output Total 1700 / 1700 1050 / 2750 Balance -1360 / -660 -1050 / -1710 Weight last 48 hrs Weight 122.107 kg Weight 125.758 kg Physical Exam Const: COMMON NORMALS: no acute distress and alert ORIENTATION/CONSCIOUSNESS: Yes awake OTHER: Hard of hearing. Sluggish responses which appears to be his baseline. HENMT: COMMON NORMALS: oropharynx normal Neck/C-Spine: COMMON NORMALS: no JVD Chest: OTHER: Nodule with superficial healed scar in left upper chest, subcutaneous nodule is probably 3 x 2 cm. Somewhat hard, mobile, nontender, without overlying erythema or skin swelling. Resp: COMMON NORMALS: normal respiratory effort (On 3 L nasal cannula) and clear to auscultation bilaterally AUSCULTATION: clear to auscultation bilaterally Cardio: COMMON NORMALS: no JVD, regular rhythm, S1 normal heart sound present, S2 normal heart sound present and No murmurs present (Cardio) RHYTHM: regular rhythm HEART SOUNDS: S1 normal heart sound present and S2 normal heart sound present GI: COMMON NORMALS: Normal to inspection, nondistended, normoactive bowel sounds present, Soft to palpation and non-tender PALPATION: Yes Soft to p alpation Extremity: COMMON NORMALS: no joint enlargement GENERAL: Yes edema (4+ LE bilat gradually decreasing proximally, and reaching up to mid thigh on the legs) Neuro: COMMON NORMALS: moves all extremities SENSORIUM/ORIENTATION: Yes alert Skin: RASHES: rashes noted (Axillary and groin rashes) Urinary Catheter Management^: Carpenter: Cath Placed During This Visit: yes Reason for Continuing Indwelling Catheter: Chronic Indwelling Urinary Catheter on Admission Urinary Catheter Date of Insertion: 02/15/20 Urinary Catheter Time of Insertion: 10:10 Data : 02/18/20 04:28 02/18/20 04:28 A&P Assessment and plan (1) Hypoxia: Secondary to CHF. No PE or pneumonia noted on CTA. In negative balance. Continue diuresis for anasarca with IV Lasix. 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 Also perhaps mild aortic stenosis noted on echocardiogram. CAD is reported, but patient is not aware of history of stenting or [place]. Is on aspirin and Plavix currently. His is also not aware of him having a heart attack or stroke. Reportedly has not seen a freight rate analyst, but overall has been very difficult to get to adhere to any medical care or get any medical assessment despite severely declining health. Discussed with his low ejection fraction, risk of complications secondary to CHF, risk of possibly progression of CHF, as well as risk of arrhythmia and possibly sudden secondary to low EF. Discussed possibility of additional more invasive assessment by cardiology, as well as possibility of LifeVest, possibility of defibrillator going forward. Per discussion with his he has not been agreeable to even minimal interventions, and could barely agree to go to the hospital this time. His son had gotten him a life alert button previously to try to call for help, and he would not even aware that, taking it off after just a short time. Per discussion with his a LifeVest would not be something that he would keep on. At this time due to concern for underlying coronary disease, will continue medical treatment and is agreeable to try to refer him to cardiology if he will agree for an outpatient visit after discharge. She understands that as she reports she has been very non-mobile at home, with underlying severe comorbidities with CHF, with multiple recent falls and hitting his head, poor candidacy for anticoagulation and with now possibility of old VTE versus new clot, as well as lack of interest/reluctance in receiving any more aggressive medical treatment his overall prognosis is likely not good. Discussed today with his son. We try to discuss different alternatives of being more aggressive and having more aggressive intervention with cardiology, coronary angiography possibly for closer assessment with regards to the CHF, consideration of LifeVest, defibrillator down the road, in addition consideration of possible VTE, high risk of developing VTE, and treatment possibilities with anticoagulation, although this is a risk with his multiple falls recently, versus other options like monitoring with prophylactic dose anticoagulation, versus possibly filter placement, depending on results of repeat duplex study tomorrow but again considering his overall functional decline, more and more immobility (son has been considering to bring him an electric wheelchair so that he can at least get around that way), and per discussion with OT and PT he has not been working with OT at all, and is full assist with PT, his overall prognosis definitely is not good, and so the question is how aggressive we should indeed be with a different medical conditions. His requested that I call the son to discuss as she reports has been recently diagnosed with some dementia, and so son is going to discuss again with her as well as with his own son who is a medical doctor with regards to further consideration of goals of care and aggressiveness of management. Status: Acute (3) Hypertension: Currently at goal Status: Acute (4) CAD (coronary artery disease): Patient and report that were told about coronary disease, but have not seen a freight rate analyst, is not aware of having [place] in the past, and never had any stents placed. As above, due to limited goals of care at this time continue medical treatment, if will agree to follow-up, refer to outpatient assessment with cardiology. Status: Acute Additional A&P Information VTE: Discussed with son today. Reassess venous duplex tomorrow. Per discussion for now continue prophylactic anticoagulation dose. We discussed additional options depending on findings of duplex with chronic versus acute VTE, and co nsideration that he is at elevated risk of developing VT going forward, but also with multiple falls recently including with head injury, and with question of goals of care as above. Will follow further after duplex is repeated. 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 As discussed with his he is certainly at high risk of developing VTE, although this may not be acute. No PE noted on CTA. Discussed risks of VTE progression, PE, decompensation, and possible life- threatening events that may happen in case of acute thromboembolism. She and son understand the risks. Subcutaneous mass left anterior upper chest: reports history of cystic lesion area which previously underwent I&D. This is reported increased on CT scan since 2017. Discussed with patient and his . They may need to follow- up with PCP, possibly surgery for reassessment, monitoring, possibly excision. No overlying signs of infection. Significant candidiasis affecting B/L armpits and groin, start clotrimazole ointment and nystatin powder. Avoiding fluconazole due to prolonged QTc interval of 516. No overt signs of cellulitis, patient is currently afebrile. Leukocytosis noted yesterday to be 12, resolved without any directed treatment. Ankle pain: Left ankle pain. Has bilateral swelling. Left ankle x-ray with plantar calcaneal spur as well as Achilles tendon insertional enthesopathy perhaps contributing to his pain. PT. Follow-up with podiatry in office. Incidentally noted arterialized right profunda femoris vein waveform on duplex. Small AV fistula is not excluded. Attestations Medical Necessity Statement*: Continue admission for assessment management of CHF exacerbation, anasarca, additional assessment of VTE, and goals of care discussions. 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
--- NOTE | 2020-02-18 16:56 | PC.NURSE ---
Notified Dr. Gill of administration of oxy IR PRN at 1238, order was for PRN at bedtime. Per Dr. Gill will change oxy IR for more frequent and order a lidocaine patch for pain.
[2020-02-18] MEDS: enoxaparin 40 mg/0.4 mL Syringe SUBCUT (17:27)
[2020-02-18] MEDS: trazodone 50 mg Tablet PO (21:18)
--- NOTE | 2020-02-18 21:25 | PC.NURSE ---
This nurse went into patient room to administer meds and remove lidocaine patch, this nurse was not able to find lidocaine patch on the patient or in the bed.
[2020-02-19] VITALS (11 sets, daily range): BP systolic 112–165; BP diastolic 65–83; PULSE 79–87; RESP 16–22; TEMP 36.6–37.2; O2SAT 90–95; BMI 42.3
[2020-02-19] MEDS: FUROsemide 10 mg/mL SDV 4mL 40 MG IVP ×2 (01:48→13:40)
[2020-02-19 05:42] LABS: Basophils # 0.1 10^3/uL (0.0-0.1); Basophils % 0.6 %; Eosinophils # 0.2 10^3/uL (0.0-0.8); Eosinophils % 1.8 %; Hematocrit 39.6 % (42.0-52.0); Hemoglobin 11.9 g/dL (11.7-16.6); Lymphocytes # 0.9 10^3/uL (0.8-4.8); Lymphocytes % 10.7 %; Mean Corpuscular HGB Conc 30.1 g/dL (30.0-36.0); Mean Corpuscular Hemoglobin 27.8 pg (28.0-34.0); Mean Corpuscular Volume 92.5 fL (80-94); Mean Platelet Volume 10.2 fL (7.4-10.4); Monocytes # 0.7 10^3/uL (0.2-0.9); Monocytes % 7.9 %; Neutrophils # 6.73 10^3/uL (1.8-7.7); Neutrophils % 78.6 %; Nucleated Red Blood Cells % 0 %; Platelet Count 189 10^3/cmm (130-400); Red Blood Count 4.28 10^6/uL (4.1-5.3); Red Cell Distribution Width 14.2 % (12.1-15.1); White Blood Count 8.6 10^3/uL (4.0-10.0)
[2020-02-19 06:03] LABS: Anion Gap 10.7 (5-19); Blood Urea Nitrogen 22 mg/dL (8-23); Calcium 8.6 mg/dL (8.5-10.5); Carbon Dioxide 38 mmol/L (22-29); Chloride 92 mmol/L (98-107); Glucose 162 mg/dL (65-115); Osmolality Calculated 284 mOsm/kg (285-295); Potassium 3.7 mmol/L (3.5-5.1); Sodium 137 mmol/L (136-145)
[2020-02-19] MEDS: metoprolol tartrate 25 mg Tablet PO ×2 (09:02→17:21)
[2020-02-19] MEDS: tamsulosin 0.4 mg Capsule PO (09:03)
[2020-02-19] MEDS: atorvastatin 40 mg Tablet 20 MG PO (09:03)
[2020-02-19] MEDS: sertraline 50 mg Tablet PO (09:03)
[2020-02-19] MEDS: levothyroxine 25 mcg Tablet PO (09:03)
[2020-02-19] MEDS: aspirin 81 mg Chew Tablet PO (09:03)
[2020-02-19] MEDS: predniSONE 5 mg Tablet 7.5 MG PO (09:03)
[2020-02-19] MEDS: clopidogrel 75 mg Tablet PO (09:03)
[2020-02-19] MEDS: pantoprazole DR 40 mg Tablet PO (09:03)
[2020-02-19] MEDS: clotrimazole 1% cream 30 gm 1 APPLIC TOPICAL ×2 (09:04→17:21)
[2020-02-19] MEDS: nystatin powder 15 gm Btl 1 APPLIC TOPICAL ×2 (09:04→17:21)
[2020-02-19] MEDS: potassium chloride oral liq 20 mEq/15 mL UDC 40 MEQ PO (09:04)
[2020-02-19] MEDS: lidocaine 5% Patch 1 PATCH TOPICAL (09:05)
--- NOTE | 2020-02-19 12:32 | USCV_ITS ---
Yesi Campos Age: 84 Gender: M : 1935 Exam Date: 02/19/2020 06:19 Ordering Phys: Varun Gill MD Technologist: Dillon Rey Exam Location: [facility] – [place] Indication: HX OF DVT LT LEG ? CHRONIC VS ACUTE HISTORY: DVT LT LEG PROCEDURES: Venous duplex imaging was performed in only the left lower extremity. The following venous structures were evaluated: common femoral vein, profunda vein, proximal portion of the greater saphenous vein, superficial femoral vein, and the popliteal vein. In addition, the posterior tibial and peroneal trunk were evaluated. On the left side, the common femoral, superficial femoral, profunda femoral, popliteal, posterior tibial, greater saphenous veins, and the peroneal trunk were identified and interrogated in the standard fashion. Serial compression, augmentation maneuvers, and spectral Doppler flow evaluation were performed. FINDINGS: IN THE LT LEG THERE APPEARS TO BE NO CHANGE IN THROMBUS IN NON OCCLUDING THROMBUS IN THE CFV, PROFUNDA, AND FEMERAL VEIN. THERE IS NO CHANGE IN THE POPLETEAL, PERINAL AND PTV VEINS. APPEARS TO BE CHONIC NOT ACUTE THROMBUS CONCLUSIONS LEFT: No change in the non occlusive chronic appearing thrombus CFV, profunda, and femoral vein. No change in the chronic appearing popliteal, peroneal, and posterior tibial vein thrombus No acute thrombus Kiran Tavarez MD (Electronically Signed) Final Date: 19 February 2020 17:18 S
--- NOTE | 2020-02-19 13:51 | P.PN_ITS ---
Subjective Subjective: Interval history: Denies any chest pain or pressure. Says breathing is comfortable with nasal cannula. Denies any abdominal pain. Vitals/I&O/Wt Last Vital Signs Temp 98.6 F 02/19/20 12:00 Pulse 80 02/19/20 12:00 Resp 16 02/19/20 12:00 BP 127/75 02/19/20 12:00 Pulse Ox 93 02/19/20 11:38 02/18/20 02/19/20 02/19/20 22:59 06:59 14:59 Intake Total 640 / 640 Output Total 1600 / 1600 Balance -1600 / -1600 640 / 640 Weight last 48 hrs Weight 118.955 kg Weight 122.107 kg Physical Exam Const: COMMON NORMALS: no acute distress and alert ORIENTATION/CONSCIOUSNESS: Yes awake OTHER: Hard of hearing. Awake, alert. HENMT: COMMON NORMALS: oropharynx normal Neck/C-Spine: COMMON NORMALS: no JVD Chest: OTHER: Nodule with superficial healed scar in left upper chest, subcutaneous nodule is probably 3 x 2 cm. Somewhat hard, mobile, nontender, without overlying erythema or skin swelling. Resp: COMMON NORMALS: normal respiratory effort (On 3 L nasal cannula) and clear to auscultation bilaterally AUSCULTATION: clear to auscultation bilaterally Cardio: COMMON NORMALS: no JVD, regular rhythm, S1 normal heart sound present, S2 normal heart sound present and No murmurs present (Cardio) RHYTHM: regular rhythm HEART SOUNDS: S1 normal heart sound present and S2 normal heart sound present GI: COMMON NORMALS: Normal to inspection, nondistended, normoactive bowel sounds present, Soft to palpation and non-tender PALPATION: Yes Soft to palpation Extremity: COMMON NORMALS: no joint enlargement GENERAL: Yes edema (4+ LE bilat gradually decreasing proximally, and reaching up to mid thigh on the legs) Neuro: COMMON NORMALS: moves all extremities SENSORIUM/ORIENTATION: Yes alert Skin: RASHES: rashes noted (Axillary and groin rashes) Urinary Catheter Management^: Carpenter: Cath Placed During This Visit: yes Reason for Continuing Indwelling Catheter: Chronic Indwelling Urinary Catheter on Admission Urinary Catheter Date of Insertion: 02/15/20 Urinary Catheter Time of Insertion: 10:10 Data : 02/19/20 05:00 02/19/20 05:00 A&P Assessment and plan (1) Combined systolic and diastolic congestive heart failure: 1600 mL UOP and listed as negative balance, but I do not see any intake charted and so balance likely not accurate. His weight appears unchanged from yesterday. Requested for accurate intake charting. At this time we will add fluid restriction of 1000 mL/day. We will increase Lasix dose to 60 mg. Family are considering goals of care and understand were going to discuss with his father further as to aggressiveness of interventions. In speaking with him, discussing congestive heart failure, and considering potential evaluation for underlying coronary disease as possible cause, he is certain he would not want to have any invasive procedures, including coronary angiogram as discussed with him. He does want to continue medical treatment only and appears to have understanding behind seeking this additional evaluation and possibly treatment. He states that in general would not want to undergo any procedures. Ejection fraction 20-25%. Also perhaps mild aortic stenosis noted on echocardiogram. CAD is reported, but patient is not aware of history of stenting or DC. Is on aspirin and Plavix currently. His is also not aware of him having a heart attack or stroke. Reportedly has not seen a night order selector, but overall has been very difficult to get to adhere to any medical care or get any medical asses sment despite severely declining health. Discussed with his low ejection fraction, risk of complications secondary to CHF, risk of possibly progression of CHF, as well as risk of arrhythmia and possibly sudden secondary to low EF. Discussed possibility of additional more invasive assessment by cardiology, as well as possibility of LifeVest, possibility of defibrillator going forward. Per discussion with his he has not been agreeable to even minimal interventions, and could barely agree to go to the hospital this time. His son had gotten him a life alert button previously to try to call for help, and he would not even aware that, taking it off after just a short time. Per discussion with his a LifeVest would not be something that he would keep on. At this time due to concern for underlying coronary disease, will continue medical treatment and is agreeable to try to refer him to cardiology if he will agree for an outpatient visit after discharge. She understands that as she reports she has been very non-mobile at home, with underlying severe comorbidities with CHF, with multiple recent falls and hitting his head, poor candidacy for anticoagulation and with now possibility of old VTE versus new clot, as well as lack of interest/reluctance in receiving any more aggressive medical treatment his overall prognosis is likely not good. Status: Acute (2) Hypoxia: Secondary to CHF. No PE or pneumonia noted on CTA. In negative balance. Continue diuresis for anasarca with IV Lasix as above. Status: Acute (3) Hypertension: Currently at goal Status: Acute (4) CAD (coronary artery disease): Patient and report that were told about coronary disease, but have not seen a night order selector, is not aware of having DC in the past, and never had any stents placed. As above, due to limited goals of care at this time continue medical treatment, if will agree to follow-up, refer to outpatient assessment with cardiology. Status: Acute Additional A&P Information VTE: Pending reassessment duplex this afternoon. Per discussion for now continue prophylactic anticoagulation dose. We discussed additional options depending on findings of duplex with chronic versus acute VTE, and consideration that he is at elevated risk of developing VT going forward, but also with multiple falls recently including with head injury, and with question of goals of care as above. Will follow further after duplex is repeated. 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 As discussed with his he is certainly at high risk of developing VTE, although this may not be acute. No PE noted on CTA. Discussed risks of VTE progression, PE, decompensation, and possible life- threatening events that may happen in case of acute thromboembolism. She and son understand the risks. Subcutaneous mass left anterior upper chest: reports history of cystic lesion area which previously underwent I&D. This is reported increased on CT scan since 2017. Discussed with patient and his . They may need to follow- up with PCP, possibly surgery for reassessment, monitoring, possibly excision. No overlying signs of infection. Significant candidiasis affecting B/L armpits and groin, start clotrimazole ointment and nystatin powder. Avoiding fluconazole due to prolonged QTc interval of 516. No overt signs of cellulitis, patient is currently afebrile. Leukocytosi s noted yesterday to be 12, resolved without any directed treatment. Ankle pain: Left ankle pain. Has bilateral swelling. Left ankle x-ray with plantar calcaneal spur as well as Achilles tendon insertional enthesopathy perhaps contributing to his pain. PT. Follow-up with podiatry in office. Incidentally noted arterialized right profunda femoris vein waveform on duplex. Small AV fistula is not excluded. Attestations Medical Necessity Statement*: Continue admission for assessment management of congestive heart failure exacerbation, reassessment for VTE, goals of care discussions. 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
[2020-02-19] MEDS: enoxaparin 40 mg/0.4 mL Syringe SUBCUT (17:20)
[2020-02-19] MEDS: trazodone 50 mg Tablet PO (20:19)
[2020-02-19] MEDS: FUROsemide 10 mg/mL SDV 10mL 60 MG IVP (20:50)
[2020-02-20] VITALS (10 sets, daily range): BP systolic 110–134; BP diastolic 58–75; PULSE 72–90; RESP 16–17; TEMP 36.4–37.3; O2SAT 90–96; BMI 39.6
[2020-02-20 06:00] LABS: Basophils # 0.1 10^3/uL (0.0-0.1); Basophils % 0.8 %; Eosinophils # 0.1 10^3/uL (0.0-0.8); Eosinophils % 1.5 %; Hematocrit 40.5 % (42.0-52.0); Hemoglobin 12.5 g/dL (11.7-16.6); Lymphocytes # 0.9 10^3/uL (0.8-4.8); Lymphocytes % 10.9 %; Mean Corpuscular HGB Conc 30.9 g/dL (30.0-36.0); Mean Corpuscular Hemoglobin 28.2 pg (28.0-34.0); Mean Corpuscular Volume 91.2 fL (80-94); Monocytes # 0.6 10^3/uL (0.2-0.9); Monocytes % 7.5 %; Neutrophils % 78.9 %; Nucleated Red Blood Cells % 0 %; Platelet Count 206 10^3/cmm (130-400); Red Blood Count 4.44 10^6/uL (4.1-5.3); Red Cell Distribution Width 14.1 % (12.1-15.1)
--- NOTE | 2020-02-20 06:14 | PC.NURSE ---
SHIFT SUMMARY Has rested well. Has been repositioned through shift. Does not move much in bed on his own. Reddened excoriated areas to entire perineal, bilat groins, scrotum and abd folds. Also some to axilla areas. Bruising to lower left leg, ankle and foot. Edema is improved. Continues to receive IV Lasix and has had good urine output. Is on 1000ml fluid restriction. Confusion to time and date. Says he just can't keep up with all that. Continuous pulse ox in place. O2 at 3l per NC
[2020-02-20 06:41] LABS: Anion Gap 10.5 (5-19); Blood Urea Nitrogen 22 mg/dL (8-23); Calcium 9.1 mg/dL (8.5-10.5); Carbon Dioxide 38 mmol/L (22-29); Chloride 92 mmol/L (98-107); Glucose 159 mg/dL (65-115); Osmolality Calculated 284 mOsm/kg (285-295); Potassium 3.5 mmol/L (3.5-5.1); Sodium 137 mmol/L (136-145)
[2020-02-20] MEDS: FUROsemide 10 mg/mL SDV 10mL 60 MG IVP ×2 (08:01→20:37)
[2020-02-20] MEDS: atorvastatin 40 mg Tablet 20 MG PO (09:43)
[2020-02-20] MEDS: pantoprazole DR 40 mg Tablet PO (09:43)
[2020-02-20] MEDS: predniSONE 5 mg Tablet 7.5 MG PO (09:43)
[2020-02-20] MEDS: metoprolol tartrate 25 mg Tablet PO ×2 (09:43→16:30)
[2020-02-20] MEDS: potassium chloride oral liq 20 mEq/15 mL UDC 40 MEQ PO (09:43)
[2020-02-20] MEDS: aspirin 81 mg Chew Tablet PO (09:43)
[2020-02-20] MEDS: clopidogrel 75 mg Tablet PO (09:43)
[2020-02-20] MEDS: levothyroxine 25 mcg Tablet PO (09:43)
[2020-02-20] MEDS: tamsulosin 0.4 mg Capsule PO (09:43)
[2020-02-20] MEDS: sertraline 50 mg Tablet PO (09:43)
[2020-02-20] MEDS: clotrimazole 1% cream 30 gm 1 APPLIC TOPICAL ×2 (09:44→16:30)
[2020-02-20] MEDS: nystatin powder 15 gm Btl 1 APPLIC TOPICAL ×2 (09:44→16:30)
[2020-02-20] MEDS: lidocaine 5% Patch 1 PATCH TOPICAL ×2 (09:44→22:39)
--- NOTE | 2020-02-20 11:47 | PC.SOCIAL ---
IMM Update Pg. 2 of IMM updated and reviewed with patient who verbalized understanding. Copy provided.
--- NOTE | 2020-02-20 12:25 | PM.PN ---
Subjective Subjective: Interval history: He sitting up in chair. Dozing off. Wakes up easily, somewhat hard of hearing, but understands well. Says his left ankle has still been bothering him. Otherwise says that his breathing is fair. Denies any chest pain or pressure. Denies any other discomfort. Vitals/I&O/Wt Last Vital Signs Temp 97.8 F 02/20/20 11:26 Pulse 72 02/20/20 11:26 Resp 17 02/20/20 11:26 BP 110/75 02/20/20 11:26 Pulse Ox 96 02/20/20 11:26 02/19/20 02/20/20 02/20/20 22:59 06:59 14:59 Intake Total 120 / 760 240 / 1000 320 / 320 Output Total 1825 / 1825 1600 / 3425 725 / 725 Balance -1705 / -1065 -1360 / -2425 -405 / -405 Weight last 48 hrs Weight 118.955 kg Physical Exam Const: COMMON NORMALS: no acute distress and alert GENERAL APPEARANCE: cooperative and comfortable ORIENTATION/CONSCIOUSNESS: Yes awake OTHER: Hard of hearing. HENMT: COMMON NORMALS: oropharynx normal Neck/C-Spine: COMMON NORMALS: no JVD Chest: OTHER: Nodule with superficial healed scar in left upper chest, subcutaneous nodule is probably 3 x 2 cm without change. Somewhat hard, mobile, nontender, without overlying erythema or skin swelling. Resp: COMMON NORMALS: normal respiratory effort (On 3 L nasal cannula) and clear to auscultation bilaterally AUSCULTATION: clear to auscultation bilaterally Cardio: COMMON NORMALS: no JVD, regular rhythm, S1 normal heart sound present, S2 normal heart sound present and No murmurs present (Cardio) RHYTHM: regular rhythm HEART SOUNDS: S1 normal heart sound present and S2 normal heart sound present GI: COMMON NORMALS: Normal to inspection, nondistended, normoactive bowel sounds present, Soft to palpation and non-tender PALPATION: Yes Soft to palpation Extremity: COMMON NORMALS: no joint enlargement GENERAL: Yes edema (4+ LE bilat gradually decreasing proximally, and reaching up to mid thigh on the legs) Neuro: COMMON NORMALS: moves all extremities SENSORIUM/ORIENTATION: Yes alert Skin: RASHES: rashes noted (Axillary and groin rashes) Urinary Catheter Management^: Carpenter: Cath Placed During This Visit: yes Reason for Continuing Indwelling Catheter: Assist Healing of Perineal & Sacral Wounds- Incontinent Patients Urinary Catheter Date of Insertion: 02/15/20 Urinary Catheter Time of Insertion: 10:10 Data : 02/20/20 05:12 02/20/20 05:12 Micro: Microbiology 02/15/20 12:10 Blood Culture - Final Blood NO GROWTH AFTER 5 DAYS 02/15/20 11:09 Blood Culture - Final Blood NO GROWTH AFTER 5 DAYS A&P Assessment and plan (1) Combined systolic and diastolic congestive heart failure: Output today is better, -3.4 L after increasing Lasix dose. Monitor LEATHA. Monitor daily weights. Renal function is allowing diuresis so far. His oxygenation appears to be stable on 3 L. He denies any chest pain or pressure. Continue IV diuresis for today. Reached out to his son to further discuss developments, and further goals of care, however, could not get in touch. We will try again little bit later. Family were going to consider overall goals of care. In speaking with the patient 02/18, discussing concerns regarding congestive heart failure risk of progression, risk of sudden , and considering potential evaluation for underlying coronary disease as possible cause, he is certain he was clear he would not want to have any invasive procedures, including coronary angiogram as discussed with him. He does want to continue medical treatment only and appears to have understanding behind seeking this additional evaluation and possibly treatment. He stated that in general would not want to undergo any procedures. Acute exacerbation of systolic CHF. Ejection fraction 20-25%. Also perhaps mild aortic stenosis noted on echocardiogram. CAD is reported, but patient is not aware of history of stenting or FL. Is on aspirin and Plavix currently. His is also not aware of him having a heart attack or stroke. Reportedly has not seen a supervisor bonding, but overall has been very difficult to get to adhere to any medical care or get any medical assessment despite severely declining health. We had previously discussed with his low ejection fraction, risk of complications secondary to CHF, risk of possibly progression of CHF, as well as risk of arrhythmia and possibly sudden secondary to low EF. Discussed possibility of additional more invasive assessment by cardiology, as well as possibility of LifeVest, possibility of defibrillator going forward. Per discussion with his he has not been agreeable to even minimal interventions, and could barely agree to go to the hospital this time. His son had gotten him a life alert button previously to try to call for help, and he would not even aware that, taking it off after just a short time. His son had confirmed this as well. Per discussion with his a LifeVest would not be something that he would keep on. At this time due to concern for underlying coronary disease, will continue medical treatment and is agreeable to try to refer him to cardiology if he will agree for an outpatient visit after discharge. He has been very non-mobile at home, with underlying severe comorbidities with CHF, with multiple recent falls, lack of interest/reluctance in receiving any more aggressive treatments his overall prognosis is likely not good. Status: Acute (2) Hypoxia: Secondary to CHF. No PE or pneumonia noted on CTA. In negative balance. Continue diuresis for anasarca with IV Lasix as above. Status: Acute (3) Hypertension: Currently at goal Status: Acute (4) CAD (coronary artery disease): Patient and report that were told about coronary disease, but have not seen a supervisor bonding, is not aware of having FL in the past, and never had any stents placed. As above, due to limited goals of care at this time continue medical treatment, if will agree to follow-up, refer to outpatient assessment with cardiology. Status: Acute Additional A&P Information VTE: Reassessment duplex without acute VTE. 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 Given his increased frequency of falls recently, some of them with head injury, would not start therapeutic anticoagulation at least at this time. This may be revisited at a later time, but for now would continue prolonged prophylactic dose anticoagulant as she is at elevated risk of VTE. No PE noted on CTA. Discussed risks of VTE progression, PE, decompensation, and possible life-threatening events that may happen in case of acute thromboembolism. and son understand the risks. Subcutaneous mass left anterior upper chest: reports history of cystic lesion area which previously underwent I&D. This is reported increased on CT scan since 2017. Discussed with patient and his . They may need to follow-up with PCP, possibly surgery for reassessment, monitoring, possibly excision. No overlying signs of infection. Significant candidiasis affecting B/L armpits and groin: Continue clotrimazole ointment and nystatin powder. Avoiding fluconazole due to prolonged QTc. No overt signs of cellulitis, patient is currently afebrile. Leukocytosis noted yesterday to be 12, resolved without any directed treatment. Ankle pain: Left ankle pain. Has bilateral swelling. Left ankle x-ray with plantar calcaneal spur as well as Achilles tendon insertional enthesopathy perhaps contributing to his pain. Uric acid is normal. If he is still bothered by pain will assess by CT of the left ankle. PT. Follow-up with podiatry in office. Incidentally noted arterialized right profunda femoris vein waveform on duplex. Small AV fistula is not excluded. Attestations Medical Necessity Statement*: Continue admission for management of CHF exacerbation, anasarca, goals of care discussions and discharge planning. 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
--- NOTE | 2020-02-20 12:27 | CT_ITS ---
WS: [id number] NONCONTRAST CT OF THE LEFT ANKLE TECHNIQUE: Noncontrast CT of the left ankle with coronal and sagittal reformatted images. CLINICAL INFORMATION: ankle pain COMPARISON: None. DLP: 128.[address] scans at [facility] use at least one of these dose optimization techniques: automat ed exposure control; mA and/or kV adjustment per patient size (includes targeted exams where dose is matched to clinical indication); or iterative reconstruction. FINDINGS: Nondisplaced oblique fracture involving the distal fibula. No significant displacement. Normal ankle mortise. Additional tiny avulsion at the tip of the lateral malleolus. Additional tiny nondisplaced f racture involving the posterior malleolus. Tiny bony avulsion at the tip of the medial malleolus. Lewis ar dome appears normal. Additional partially evaluated nondisplaced fractures involving the tarsal bones involving the first second and third cuneiforms. Additional partially visualized nondisplaced fractures involving the bas e of the second third and fourth metatarsals at the edge of the [id number]. Pes planus. Plantar and Achilles calcaneal spurring. Vascular calcification. CT/CT ankle LT wo con* [id number] IMPRESSION: 1. Oblique transverse fracture involving the distal fibula. Small avulsion fra ctures involving the tip of the medial and lateral malleolus. 2. Additional nondisplaced fracture involving the posterior malleolus. 3. Multiple nondisplaced fractures at the edge of the [id number] involving the tarsal bones and the base of the second third and fourth metatarsals as lynnette cribed above.
[2020-02-20] MEDS: enoxaparin 40 mg/0.4 mL Syringe SUBCUT (16:30)
[2020-02-20] MEDS: trazodone 50 mg Tablet PO (22:23)
[2020-02-21] VITALS (7 sets, daily range): BP systolic 113–143; BP diastolic 74–88; PULSE 72–87; RESP 17–20; TEMP 36.6–37.1; O2SAT 89–98
[2020-02-21 05:34] LABS: Basophils % 0.5 %; Eosinophils # 0.1 10^3/uL (0.0-0.8); Eosinophils % 1.6 %; Hematocrit 41.9 % (42.0-52.0); Hemoglobin 12.7 g/dL (11.7-16.6); Lymphocytes # 0.9 10^3/uL (0.8-4.8); Lymphocytes % 12.8 %; Mean Corpuscular HGB Conc 30.3 g/dL (30.0-36.0); Mean Corpuscular Hemoglobin 27.6 pg (28.0-34.0); Mean Corpuscular Volume 91.1 fL (80-94); Mean Platelet Volume 9.7 fL (7.4-10.4); Monocytes # 0.6 10^3/uL (0.2-0.9); Monocytes % 8.3 %; Neutrophils # 5.62 10^3/uL (1.8-7.7); Neutrophils % 76.3 %; Nucleated Red Blood Cells % 0 %; Platelet Count 227 10^3/cmm (130-400); Red Cell Distribution Width 14.1 % (12.1-15.1); White Blood Count 7.4 10^3/uL (4.0-10.0)
[2020-02-21 05:58] LABS: Anion Gap 11.4 (5-19); Blood Urea Nitrogen 22 mg/dL (8-23); Calcium 9.1 mg/dL (8.5-10.5); Carbon Dioxide 38 mmol/L (22-29); Chloride 94 mmol/L (98-107); Glucose 133 mg/dL (65-115); Osmolality Calculated 289 mOsm/kg (285-295); Potassium 3.4 mmol/L (3.5-5.1); Sodium 140 mmol/L (136-145)
[2020-02-21] MEDS: predniSONE 5 mg Tablet 7.5 MG PO (08:08)
[2020-02-21] MEDS: lidocaine 5% Patch 1 PATCH TOPICAL (08:08)
[2020-02-21] MEDS: atorvastatin 40 mg Tablet 20 MG PO (08:09)
[2020-02-21] MEDS: sertraline 50 mg Tablet PO (08:09)
[2020-02-21] MEDS: potassium chloride oral liq 20 mEq/15 mL UDC 40 MEQ PO (08:09)
[2020-02-21] MEDS: tamsulosin 0.4 mg Capsule PO (08:09)
[2020-02-21] MEDS: pantoprazole DR 40 mg Tablet PO (08:09)
[2020-02-21] MEDS: levothyroxine 25 mcg Tablet PO (08:10)
[2020-02-21] MEDS: clopidogrel 75 mg Tablet PO (08:10)
[2020-02-21] MEDS: metoprolol tartrate 25 mg Tablet PO (08:10)
[2020-02-21] MEDS: aspirin 81 mg Chew Tablet PO (08:11)
[2020-02-21] MEDS: nystatin powder 15 gm Btl 1 APPLIC TOPICAL (08:13)
[2020-02-21] MEDS: clotrimazole 1% cream 30 gm 1 APPLIC TOPICAL (08:13)
[2020-02-21] MEDS: FUROsemide 10 mg/mL SDV 10mL 60 MG IVP (08:39)
--- NOTE | 2020-02-21 09:04 | P.CONIM_ITS ---
Providers/Reason For Consult Consulting Physican/Specialty*: Aniket Miller MD/ Cardiology Reason for Consult*: HFrEF/ ischemic evaluation Attending Physician: Varun Gill Primary Care Provider: Jimbo López MD History of Present Illness History of Present Illness Yesi Campos is a 84 year old male with past medical history of congestive heart failure with EF of 30% on an echo from 2017, questionable coronary artery disease history, was admitted after a fall and with volume overload. He was diuresed during admission. Cardiology was consulted as patient does not have ischemic evaluation of his congestive heart failure and to inform patient about the procedures involved for ischemic evaluation. Patient himself denies any complaints of chest pain. He is poor historian and is hard of hearing. He does not want to undergo any procedures at this time. ECHO done during current admission shows an EF of 20-25%. Review of Systems Narrative: CONSTITUTIONAL: No fever chills weight loss or gain or night sweats. [] HEENT: Normocephalic, atraumatic.[] RESPIRATORY: No cough, sputum, hemoptysis or wheezing.[] CARDIOVASCULAR: Shortness of breath. [] GI: no nausea vomiting diarrhea. [] CHIEF II DISPATCHER: No numbness, tingling, weakness or loss of function in any part of the body. [] MUSCULOSKELETAL: No knee or joint pain or rashes. [] Meds/Allergies Home Medications and Allergies Home Medications Medication Instructions Recorded Confirmed Last Taken Type Vitamin D3 25 mcg PO DAILY 02/15/20 02/15/20 02/15/20 History aspirin 81 mg PO DAILY 02/15/20 02/15/20 02/15/20 History clopidogrel 75 mg PO DAILY 02/15/20 02/15/20 02/15/20 History ferrous gluconate 324 mg PO DAILY 02/15/20 02/15/20 02/15/20 History levothyroxine 25 mcg PO DAILY 02/15/20 02/15/20 02/15/20 History metoprolol succinate 25 mg PO BID 02/15/20 02/15/20 02/15/20 History oxycodone 5 mg PO BEDTIME 02/15/20 02/15/20 02/14/20 History pantoprazole 40 mg PO DAILY 02/15/20 02/15/20 02/15/20 History potassium chloride 10 meq PO DAILY 02/15/20 02/15/20 02/15/20 History pravastatin 80 mg PO DAILY 02/15/20 02/15/20 02/14/20 History prednisone 7.5 mg PO DAILY 02/15/20 02/15/20 02/15/20 History sertraline 50 mg PO DAILY 02/15/20 02/15/20 02/15/20 History tamsulosin 0.4 mg PO DAILY 02/15/20 02/15/20 02/15/20 History trazodone 50 mg PO BEDTIME 02/15/20 02/15/20 02/14/20 History clotrimazole 1 applic TOPICAL BID #28 gm 02/21/20 Unknown Rx enoxaparin 40 mg SUBCUT Q24H 30 Days #12 ml 02/21/20 Unknown Rx furosemide [Lasix] 60 mg PO BID #21 tab 02/21/20 Unknown Rx nystatin [Nystop] 1 applic TOPICAL BID #30 gm 02/21/20 Unknown Rx Allergies Allergy/AdvReac Type Severity Reaction Status Date / Time No Known Allergies Allergy Verified 02/15/20 11:14 Current Medications Current Medications Generic Name Dose Route Start Last Admin Trade Name Freq PRN Reason Stop Dose Admin Aspirin 81 mg 02/16/20 09:00 02/21/20 08:11 Aspirin Chewable PO 81 mg DAILY ROSITA Administration Atorvastatin Calcium 20 mg 02/16/20 09:00 02/21/20 08:09 Lipitor PO 20 mg DAILY ROSITA Administration Clopidogrel Bisulfate 75 mg 02/16/20 09:00 02/21/20 08:10 Plavix PO 75 mg DAILY ROSITA Administration Clotrimazole 1 applic 02/16/20 18:00 02/21/20 08:13 Lotrimin TOPICAL 1 applic BID ROSITA Administration Enoxaparin Sodium 40 mg 02/15/20 17:00 02/20/20 16:30 Lovenox SUBCUT 40 mg Q24H ROSITA Administration Furosemide 60 mg 02/19/20 20:00 02/21/20 08:39 Lasix IVP 60 mg Q12H ROSITA Administration Levothyroxine Sodium 25 mcg 02/16/20 09:00 02/21/20 08:10 Synthroid PO 25 mcg DAILY ROSITA Administration Lidocaine 1 patch 02/18/20 21:00 02/21/20 08:08 Lidoderm 5% Patch TOPICAL 1 patch [id number] ROSITA Administration Metoprolol Tartrate 25 mg 02/15/20 18:00 02/21/20 08:10 Lopressor PO 25 mg BID ROSITA Administration Nystatin 1 applic 02/16/20 18:00 02/21/20 08:13 Nystatin Powder TOPICAL 1 applic BID ROSITA Administration Pantoprazole Sodium 40 mg 02/16/20 09:00 02/21/20 08:09 Protonix PO 40 mg DAILY ROSITA Administration Potassium Chloride 40 meq 02/16/20 12:15 02/21/20 08:09 Potassium Chloride Oral Liquid PO 40 meq DAILY ROSITA Administration Prednisone 7.5 mg 02/16/20 09:00 02/21/20 08:08 Prednisone PO 7.5 mg DAILY ROSITA Administration Sertraline HCl 50 mg 02/16/20 09:00 02/21/20 08:09 Zoloft PO 50 mg DAILY ROSITA Administration Tamsulosin HCl 0.4 mg 02/16/20 09:00 02/21/20 08:09 Flomax PO 0.4 mg DAILY ROSITA Administration Trazodone HCl 50 mg 02/15/20 21:00 02/20/20 22:23 Desyrel PO 50 mg BEDTIME ROSITA Administration PFSH Acute PFSH: Medical History (Updated 02/21/20 @ 17:57 by Varun Gill MD) CAD (coronary artery disease) Combined systolic and diastolic congestive heart failure Congestive heart failure Hypertension Vitals/I&O/Wt Last Vital Signs Temp 98.1 F 02/21/20 08:00 Pulse 87 02/21/20 08:09 Resp 20 H 02/21/20 08:00 BP 126/77 02/21/20 08:00 Pulse Ox 94 02/21/20 08:09 02/20/20 02/21/20 02/21/20 22:59 06:59 14:59 Output Total 350 / 1075 1200 / 2275 Balance -350 / -695 -1200 / -1895 Weight last 48 hrs Weight 245 lb 4 oz Physical Exam Const: OTHER: GENERAL: Patient is alert, awake and oriented x3. [] NECK: No jugular vein distension. [] HEENT: No cyanosis. No icterus. No pallor. [] HEART: Regular S1 and S2. No murmur, rub or gallop. [] LUNGS: Bilateral crackles. [] ABDOMEN: Soft, nontender and nondistended. Positive bowel sounds. No guarding, rebound or tenderness. [] CENTRAL NERVOUS SYSTEM: Grossly nonfocal. [] EXTREMITIES: Lower extremities with 1+ edema bilaterally. Pulses palpable in the lower extremities, both dorsalis pedis and posterior tibial. [] Urinary Catheter Management^: Carpenter: Cath Placed During This Visit: yes Reason for Continuing Indwelling Catheter: Acute Urinary Retention or Obstruction Urinary Catheter Date of Insertion: 02/15/20 Urinary Catheter Time of Insertion: 10:10 Data Micro: Micro: Microbiology 02/15/20 12:10 Blood Culture - Fi nal Blood NO GROWTH AFTER 5 DAYS 02/15/20 11:09 Blood Culture - Fi nal Blood NO GROWTH AFTER 5 DAYS A&P Assessment and plan (1) Combined systolic and diastolic congestive heart failure: Status: Acute (2) Hypertension: Status: Acute Patient has heart failure with reduced ejection fraction. Apparently he has never been worked up for coronary artery disease. I discussed the possible assessment for coronary artery disease and patient does not want to undergo any invasive procedures at all. I tried calling patient's family but was not able to reach them. We can see patient as outpatient to evaluate for ischemic work- up if he and the family agree. It will be reasonable to provide patient LifeVest as he is at risk of sudden cardiac given his low systolic function. However I am not sure if patient is going to use it. Continue current medications including Lasix. Thank you for involving us with the care of this patient. Please call with questions. Coding Level of Care Code Acute Industrial Gas Fitter for Bhavin Gibson Diagnoses Combined systolic and diastolic congestive heart failure I50.40 Hypertension I10
[2020-02-21] MEDS: potassium chloride ER 10 mEq Tablet 20 MEQ PO (09:44)
--- NOTE | 2020-02-21 10:48 | CT_ITS ---
WS: [id number] Noncontrasted CT left lower leg TECHNIQUE: Noncontrast CT left lower leg with coronal and sagittal reformatted images. CLINICAL INFORMATION: tib, fib, fall COMPARISON: None. DLP: 2074.[address] scans at [facility] use at least one of these dose optimization techniques: automat ed exposure control; mA and/or kV adjustment per patient size (includes targeted exams where dose is matched to clinical indication); or iterative reconstruction. FINDINGS: Motion artifact in the mid tibia. Osteopenia. Normal anatomic alignment. Moderate to advanced arthrit is right knee with medial compartment narrowing. Hypertrophic changes along the joint line. Ankle fra ctures and distal fibula fracture described on the prior ankle CT. Hypertrophic patella. Small suprap atellar effusion. Soft tissue edema lower leg and ankle. Vascular calcification. CT/CT lower leg LT wo con* [id number] IMPRESSION: 1. No acute tibia or fibula diaphysis fractures. 2. Distal fibula and ankle fractures described on the prior ankle CT. 3. Osteopenia. 4. Moderate to advanced degenerative arthritis left knee. 5. Small suprapatellar effusion. 6. Soft tissue edema lower leg and ankle.
--- NOTE | 2020-02-21 10:53 | CT_ITS ---
WS: [id number] NONCONTRAST CT LEFT FOOT TECHNIQUE: Noncontrast CT left foot with coronal and sagittal reformatted images. CLINICAL INFORMATION: fall, fxs COMPARISON: None. DLP: 363.[address] scans at [facility] use at least one of these dose optimization techniques: automat ed exposure control; mA and/or kV adjustment per patient size (includes targeted exams where dose is matched to clinical indication); or iterative reconstruction. FINDINGS: Ankle fractures as described on the recent ankle CT including distal fibula, posterior malleolus, med ial malleolus, and lateral malleolus fractures and avulsions. Plantar and Achilles calcaneal spurring . Vascular calcification. Tiny nondisplaced fractures involving the first second and third cuneiforms. Nondisplaced slightly co mminuted fractures involving the base second third and fourth metatarsals. Distal metatarsal shafts a ppear intact. CT/CT foot LT wo con* [id number] IMPRESSION: 1. Ankle and distal fibula fractures discussed on the recent ankle CT. 2. Nondisplaced fractures involving the first second and third cuneiforms and second third and fourth metatarsal bases. No significant displacement. 3. Distal metatarsals appear normal.
--- NOTE | 2020-02-21 11:46 | PC.CHAP ---
Pastoral Care Encounter/Spiritual Assessment Type of Contact [] Declined inclusion teacher visit [] Patient/Family/Request visit [] Outpatient visit [xx] Follow-up visit [] Physician referral [] Code/Alert [xx] Routine visit [] Staff referral [] Actively dying [] Patient sleeping [] Family support [] [] Out of room [] Palliative care [] [] Receiving care in room [] Pre-surgical visit [] Trauma [xx] Long length of stay [] ICU visit [] Other: Relational/Emotional Strength [] Patient feels connected with others/family/visitors/staff [] Distress [] Loneliness/isolation [] Abandonment Spirituality of Patient [] Person of Raquel [] Attends Judaism of their Raquel [xx] Believes in Prayer [] Reads Bible or Protestant materials [] There are Spiritual issues to be addressed Seismic Engineer Interventions [xx] Prayer [] Active listening [] Non-anxious presence [] Spiritual/emotional support [] Crisis/trauma care [] Spiritual counseling [] Bereavement support [] Provided bereavement packet [] Provided Bible/devotional materials [] Provided toy/stuffed animal, coloring book to patient or family member [] Provided Communion [] Anointing/[place] [] Salvation [xx] Completed spiritual assessment [] Other: Impact on Illness or Injury [] Angry [] Fearful [] Anxious [] Often cries [] Exhaustion [] Unable to work [] Unable to attend denominational [] Unable to walk/stand [] Unable to read [] Unable to drive [] Unable to eat/drink [] Unable to sleep [] Unable to be with family [] Patient intubated [] Other: Summary Elderly gentleman who was not fully aware of surroundings and was quite drowsy. He agreed to prayer but did not want to talk or visit. He thanked me for praying and that was about all he said. Time spent with patient 5 minutes Seismic Engineer Jeanette Castellanos
--- NOTE | 2020-02-21 17:54 | PM.DCS ---
Discharge Providers Date of Admission: 02/15/20 14:54 Date of Discharge: February 21, 2020 Attending Provider at Admission: Dang Carlos MD Attending Provider at Discharge: Varun Gill Primary Care Provider: Jimbo López MD Diagnoses at Discharge Discharge Diagnosis (1) Combined systolic and diastolic congestive heart failure: Status: Acute (2) Hypertension: Status: Acute (3) Ankle fracture: Status: Acute (4) Fibula fracture: Status: Acute (5) Foot fracture, left: Status: Acute (6) Hypoxia: Status: Acute (7) CAD (coronary artery disease): Status: Acute (8) Leg DVT (deep venous thromboembolism), chronic: Status: Acute (9) Subcutaneous mass: Status: Acute (10) Candidiasis: Status: Acute (11) AV fistula: Status: Acute Reason for Visit Reason for Visit: HEAD LAC S/P FALL Hospital Course Hospital Course: Very pleasant 84-year-old gentleman with history of congestive heart failure, EF 30% on EF back in 2014, suspected CAD, but per patient and family has never had angiographic assessment, although did have stress test in 2017, was admitted after a fall at senior care, with generalized weakness, unable to get up subsequently, on admission found to be in acute exacerbation of systolic congestive heart failure, treated with IV diuresis, with concomitant hypoxia, requiring 3 L of oxygen by nasal cannula. With noted bilateral lower extremity swelling, this is been gradually improving with diuresis, however, more persistent left side. Was assessed by venous duplex with finding of initially unclear age of VTE, subsequently reassessed, and appears this is chronic VTE which was found stable. He has been having persistent pain in his left ankle. X-ray obtained initially showed Achilles tendon enthesopathy, calcaneal spur, no fractures. However, due to persistent pain, bruising noted dorsally on the foot was reassessed by CT of the ankle with finding of multiple fractures including oblique transverse fracture involving distal fibula, small avulsion fractures involving tip of medial and lateral malleolus, additional nondisplaced fracture involving posterior malleolus, multiple nondisplaced fractures of the edge of [id number] involving tarsal bones, base of second third and fourth metatarsals. This was confirmed on CT of the foot and more proximal CT of tibia and fibula, with noted nondisplaced fractures involving the first, second and third cuneiform and second third and fourth metatarsal bases without significant displacement. Distal metatarsals appear normal. Findings were discussed with orthopedics, he was set up with a surgical boot for his left ankle/foot, and he is recommended to be touchdown weightbearing only on the left side for balance. No acute orthopedic intervention was recommended. But he is recommended to follow-up with orthopedics in office next week. He otherwise has been comfortable in terms of his breathing with nasal cannula. Has had no chest pain. He is repeatedly stated he would not want additional aggressive procedures for assessment of management of his CHF, suspected CAD, and similarly would not want additional procedures like placement of IVC which was temporarily considered given VTE and poor candidacy for anticoagulation due to falls including just prior to admission. He was assessed closer by cardiology after discussion with the family wanted to be sure he fully understands risks and benefits of additional intervention. Appreciate consultation. No immediate intervention is recommended, he may follow-up in office for consideration of selective angiography for additional assessment of coronary disease if he will change his mind, and otherwise for consideration of possible LifeVest/defibrillator. Discussion with his and son, he has not been a good candidate for therapy like LifeVest as he is in general very reluctant to pursue any more involved medical treatments. His reports that he was set up with a life alert button in the past, and did not tolerate that for more than a short time like 1 to several days. At this time continue diuresis with Lasix. Dose was temporarily increased to 60 mg twice a day for 1 week. Please reassess, and if reaching euvolemia sooner may decrease back to usual dose Lasix before that time. Monitor renal function and potassium. Continue to wean off oxygen as tolerating. During hospitalization has also been treated for severe candidiasis of bilateral armpits and groin with nystatin and clotrimazole. No oral therapy was given due to QTC prolongation noted in the hospital. Also noted incidentally enlargement of left subcutaneous anterior chest mass, previously with a cyst there and I&D by surgery. Recommended to follow-up with surgery for reassessment and consideration if needing excision. Incidentally also noted arterialized right profunda femoris vein waveform on duplex with small AV fistula not excluded. All the above conditions, assessment and plan were discussed with patient, as well as his son (per request of his ), and both verbalized understanding and agreement with plan and did not have any additional questions. Physical Exam Const: COMMON NORMALS: no acute distress and alert GENERAL APPEARANCE: cooperative and comfortable ORIENTATION/CONSCIOUSNESS: Yes awake OTHER: Hard of hearing. Reports he is doing well, apart from his ankle on the left side. No trouble breathing. No chest pain. HENMT: COMMON NORMALS: oropharynx normal Neck/C-Spine: COMMON NORMALS: no JVD Chest: OTHER: Nodule with superficial healed scar in left upper chest, subcutaneous nodule is probably 3 x 2 cm without change. Somewhat hard, mobile, nontender, without overlying erythema or skin swelling. Resp: COMMON NORMALS: normal respiratory effort (On 3 L nasal cannula) and clear to auscultation bilaterally AUSCULTATION: clear to auscultation bilaterally Cardio: COMMON NORMALS: no JVD, regular rhythm, S1 normal heart sound present, S2 normal heart sound present and No murmurs present (Cardio) RHYTHM: regular rhythm HEART SOUNDS: S1 normal heart sound present and S2 normal heart sound present GI: COMMON NORMALS: Normal to inspection, nondistended, normoactive bowel sounds present, Soft to palpation and non-tender PALPATION: Yes Soft to palpation Extremity: COMMON NORMALS: no joint enlargement GENERAL: Yes edema (Significantly improving edema especially on the right, on the left side edema is still persistent, and appears to be related to ankle and foot fractures. 4+ on the left. 2-3+ on the right.) OTHER: Lateral and posterior bruising of lower leg on the left, as well as dorsal left foot bruising at third and fourth MTP joints. Dopplerable pulses. Neuro: COMMON NORMALS: moves all extremities SENSORIUM/ORIENTATION: Yes alert Skin: RASHES: rashes noted (Axillary and groin rashes) Urinary Catheter Management^: Carpenter: Cath Placed During This Visit: yes Reason for Continuing Indwelling Catheter: Acute Urinary Retention or Obstruction Urinary Catheter Date of Insertion: 02/15/20 Urinary Catheter Time of Insertion: 10:10 Discharge Data Data Completed and Pending: Completed Studies During Hospitalization Category Date Time Status CT angio chest PE protcl [id number] Urge nt Cat Scan 02/15/20 12:[address] ankle LT wo co n* [id number] Routine Cat Scan 02/20/20 12:[address] cervical spin wo con* [id number] Urge nt Cat Scan 02/15/20 10:[address] foot LT wo con * [id number] Routine Cat Scan 02/21/20 10:[address] head wo con* 7 [id number] Urgent Cat Scan 02/15/20 10:[address] lower leg LT w o con* [id number] Routi ne Cat Scan 02/21/20 10:48 Completed XR ankle LT 2V 73 600 Routine Exams 02/16/20 10:02 Completed XR ankle RT 2V 73 600 Routine Exams 02/16/20 10:02 Completed XR chest 1V darian ble [id number] Urgent Exams 02/15/20 10:18 Completed XR lumbar spine 2 -3V* [id number] Routine Exams 02/17/20 09:13 Completed CV echo complete* [id number] Routine Ultrasound 02/16/20 10:02 [place] [id number] Routin e Ultrasound 02/16/20 10:02 [place] [id number] Routin e Ultrasound 02/19/20 12:32 Completed Labs from last 24 hours 02/21/20 02/21/20 05:09 05:09 WBC 7.4 RBC 4.60 Hgb 12.7 Hct 41.9 L MCV 91.1 MCH 27.6 L MCHC 30.3 RDW 14.1 Plt Count 227 MPV 9.7 Neut % (Auto) 76.3 Lymph % (Auto) 12.8 [place] % (Auto) 8.3 Eos % (Auto) 1.6 Baso % (Auto) 0.5 Neut # (Auto) 5.62 Lymph # (Auto) 0.9 [place] # (Auto) 0.6 Eos # (Auto) 0.1 Baso # (Auto) 0.0 Nucleated RBC % (a uto) 0 Nucleated RBCs # 0.0 Sodium 140 Potassium 3.4 L Chloride 94 L Carbon Dioxide 38 H Anion Gap 11.4 BUN 22 Creatinine 0.9 GFR Calculation Not Reportable Glucose 133 H Calculated Osmolal ity 289 Calcium 9.1 Vitals: Last Vital Signs Temp 98.7 F 02/21/20 17:08 Pulse 77 02/21/20 17:08 Resp 18 02/21/20 17:08 BP 143/80 02/21/20 17:08 Pulse Ox 94 02/21/20 17:08 Discharge Plan Discharge Patient Disposition: Xfer SNF Condition: Stable Prescriptions: New Nystop 100,000 unit/gram Powder 1 applic topical BID Qty: 30 RF: 0 clotrimazole 1 % Cream 1 applic topical BID Qty: 28 RF: 0 enoxaparin 40 mg/0.4 mL Syringe 40 mg SUBCUT Q24H 30 Days Qty: 12 RF: 0 Lasix 40 mg tablet 60 mg PO BID Qty: 21 RF: 0 Continued trazodone 50 mg tablet 50 mg PO BEDTIME RF: 0 prednisone 5 mg tablet 7.5 mg PO DAILY RF: 0 potassium chloride 10 mEq tablet extended release 10 meq PO DAILY RF: 0 clopidogrel 75 mg tablet 75 mg PO DAILY RF: 0 levothyroxine 25 mcg tablet 25 mcg PO DAILY RF: 0 pravastatin 80 mg tablet 80 mg PO DAILY RF: 0 tamsulosin 0.4 mg capsule 0.4 mg PO DAILY RF: 0 pantoprazole 40 mg tablet,delayed release (DR/EC) 40 mg PO DAILY RF: 0 aspirin 81 mg Tablet,Chewable 81 mg PO DAILY RF: 0 metoprolol succinate 25 mg tablet extended release 24 hr 25 mg PO BID RF: 0 sertraline 50 mg tablet 50 mg PO DAILY RF: 0 oxycodone 5 mg tablet 5 mg PO BEDTIME RF: 0 Vitamin D3 25 mcg (1,000 unit) Capsule 25 mcg PO DAILY RF: 0 ferrous gluconate 324 mg (38 mg iron) tablet 324 mg PO DAILY RF: 0 Discontinued furosemide 20 mg tablet 20 mg PO EVERY OTHER DAY RF: 0 Discharge Orders: Discharge Order (Routine); Ordered 02/21/20 Ordered By: Varun Gill Referrals: [facility] [Outside] Tavo Beck MD [Physician] - 03/09/20 9:30 am (You have an appointment with Dr. Beck on March 09 at 9:30am) Aniket Miller M.D [Physician] - 03/03/20 4:00 pm (CHF, CAD. You have an appointment with Dr. Miller on March 03 at 4:00pm) Jimbo López MD [Primary Care Provider] - 4-7 days ([facility] will make all follow up appointments.) Discharge Activity: Limit activity as instructed and As per PT/OT instructions Activity Restrictions/Additional Instructions: Touchdown weightbearing only on L foot for balance. Boot in place. Follow-up with orthopedics next week for ankle and foot fractures. Continue diuresis for congestive heart failure. Reassess renal function and potassium next week. Adjust diuretic as appropriate. For now requested 60 mg oral twice a day for additional week, but may decrease sooner to her usual dose if volume status is improving significantly. Please discuss again regarding goals of care, and consideration of additional work-up/assessment by cardiology possibly with coronary angiogram, consideration of LifeVest/defibrillator. Please follow-up with general surgery regarding mass in the subcutaneous tissue of left chest wall, previously history of cyst, for assessment whether this may need to be excised. Continue prophylactic dose anticoagulation with Lovenox at this time due to high risk of VTE. Chronic VTE was noted in left lower extremity on duplex study. Continue oxygen 3 L by nasal cannula for congestive heart failure. Wean down as tolerating, goal saturation 92%. Continue nystatin and clotrimazole for armpits and groin candidiasis. No oral treatment was given due to QTC prolongation noted during hospitalization. Discharge Date/Time: 02/21/20 17:09 Discharge Attestations Time Spent in Discharge Care*: greater than 30 min Quality Metrics Clinical Quality Measures During this hospital stay, did patient experience: None Coding Level of Care Code Acute Termite Treater for g Fwd Exam Comprehensive Diagnoses Combined systolic and diastolic congestive heart failure I50.40 Hypertension I10 Ankle fracture S82.899A Fibula fracture S82.409A Foot fracture, left S92.902A Hypoxia R09.02 CAD (coronary artery disease) I25.10 Leg DVT (deep venous thromboembolism), chronic I82.509 Subcutaneous mass R22.9 Candidiasis B37.9 AV fistula I77.0
== END 2020-02-21 17:09 | disposition skilled nursing facility (03) | DRG 291 ==
LOC: ER 13:30 → MEDSURG 15:43
PROVIDERS: Physician Assistant; Admitting Provider Student in an Organized Health Care Education/Training Program; PCP Family Medicine; Visit Provider Internal Medicine
DX: I11.0 Hypertensive heart disease with heart failure (principal); J96.01 Acute respiratory failure with hypoxia; I50.41 Acute combined systolic (congestive) and diastolic (congestive) heart failure; I25.10 Atherosclerotic heart disease of native coronary artery without angina pectoris; B37.9 Candidiasis, unspecified; Z86.718 Personal history of other venous thrombosis and embolism; Z91.81 History of falling; Z79.02 Long term (current) use of antithrombotics/antiplatelets; Z79.82 Long term (current) use of aspirin; M19.90 Unspecified osteoarthritis, unspecified site
CPT/HCPCS: 12345; 36415; 36416; 36600; 51702; 70450; 71045; 71275; 72100; 72125; 73600; 73700; 80048; 80051; 80053; 81001; 82550; 82810; 82962; 83605; 83735; 83880; 83986; 84145; 84484; 84550; 85025; 85610; 85730; 87040; 87426; 93005; 93306; 93970; 93971; 94640; 94762; 94799; 96372; 96375; 97110; 97161; 97165; 97530; 97760; 99284; J1650; J1940; J3475; J7512; L4361; Q9967

== ENCOUNTER 2020-03-25 21:57 | Outpatient (CLI) | payer OTHER, SELFPAY ==
[2020-03-25 23:06] LABS: Urine Appearance Turbid (CLEAR); Urine Color Yellow (Yellow); pH Urine 5 (5-7)
[2020-03-25 23:07] LABS: Add Urine Microscopic? YES; Bilirubin Urine 1+ (Negative); Blood Urine 3+ (Negative); Glucose Urine UA Norm (Normal); Ketones Urine 1+ (Negative); Leukocyte Esterase Urine 2+ (Negative); Nitrate Urine Negative (Negative); Protein Urine 1+ (Negative); Urobilinogen Urine 1 mg/dL (Negative)
[2020-03-25 23:09] LABS: RBC Urine 25-40 /hpf (0-2); WBC Urine TOO NUMEROUS TO CNT /hpf (0-5)
[2020-03-25 23:10] LABS: Add Urine Culture? Yes; Bacteria Urine 3+ /hpf; Squamous Epithelial Cell Urine 0-4 /hpf (0-5)
== END 2020-03-25 21:58 | disposition home or self-care (01) ==
LOC: LAB 21:58
PROVIDERS: PCP Family Medicine; Visit Provider Family Medicine
DX: N39.0 Urinary tract infection, site not specified (principal)
CPT/HCPCS: 81001

== ENCOUNTER 2020-03-27 11:39 | Outpatient (CLI) | payer MEDICARE, SELFPAY ==
[2020-03-27 12:36] LABS: Blood Urea Nitrogen 69 mg/dL (8-23); Calcium 9.1 mg/dL (8.5-10.5); Carbon Dioxide 24 mmol/L (22-29); Chloride 94 mmol/L (98-107); Glucose 137 mg/dL (65-115); Osmolality Calculated 294 mOsm/kg (285-295); Sodium 131 mmol/L (136-145)
[2020-03-27 12:39] LABS: Anion Gap 17.3 (5-19); Potassium 4.3 mmol/L (3.5-5.1)
== END 2020-03-27 11:40 | disposition home or self-care (01) ==
LOC: LAB 11:40
PROVIDERS: PCP Family Medicine; Visit Provider Family Medicine
DX: I50.9 Heart failure, unspecified (principal)
CPT/HCPCS: 80048

== ENCOUNTER → 2020-08-21 09:28 | Outpatient (BNVA) | payer MEDICARE, SELFPAY | PROVIDERS: PCP Family Medicine; Visit Provider Surgery | DX: Z20.822 Contact with and (suspected) exposure to COVID-19 (principal) | CPT/HCPCS: 87635 ==

== ENCOUNTER 2020-08-27 09:30 | Day surgery (SDC) | payer MEDICARE, OTHER, SELFPAY ==
[2020-08-26 14:29] VITALS: BMI 34.7
[2020-08-27 10:31] VITALS: BP 153/74; PULSE 66; RESP 18; TEMP 36.7; O2SAT 96
[2020-08-27] MEDS: sodium chloride 0.9% 1,000 ML 30 ML IV (10:36)
--- NOTE | 2020-08-27 10:47 | W.PM.OPSUD ---
Surgery/Procedure H&P Update DATE OF PROCEDURE: August 27, 2020 DATE H&P PERFORMED: 08/18/20 H&P UPDATE INFORMATION: I have examined patient prior to procedure and No changes to prior documentation CHANGES TO PREVIOUS DOCUMENTATION: We found out this morning that the patient has a DPOA. This is his son, Willam. I have been trying to reach Willam at 2 different given phone numbers this morning but have not been able to reach him as yet. The patient says that day any is in charge of signing all of his medical paperwork, but has no idea where he is right now. We will continue in the attempt to get the procedure done today. 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 PLANNED PROCEDURE: Operation Date: 08/27/20 11:45 Proposed Procedures p Excision of lesion of left forearm [id number] D48.5(Left) - Dani Good MD
--- NOTE | 2020-08-27 10:52 | ANES.PREANE2 ---
Pre-Anesthetic Assessment Pre-Anesthetic Assessment: Height/Weight: Height 1.68 m Weight 97.522 kg Temp Pulse Resp BP Pulse Ox 98.1 F 66 18 153/74 96 08/27/20 10:31 08/27/20 10:31 08/27/20 10:31 08/27/20 10:31 08/27/20 10:31 Preop Diagnosis: Skin lesion left forearm, probable squamous cell carcinoma skin cancer. Proposed Procedure: Operation Date: 08/27/20 11:45 Proposed Procedures p Excision of lesion of left forearm 49390 [id number] D48.5(Left) - Dani Good MD Was Beta Yola taken within 24 hours: Yes Was Clonidine taken within 24 hours: N/A Last intake: Intake Last Liquid Date 08/27/20 Last Liquid Time 07:00 Last Solid Date 08/26/20 Last Solid Time 22:00 Social: Social History: No alcohol and No tobacco Exam: Pre-Anes Outpt Exam: alert, oriented x 3 and regular rate & rhythm Airway: Submandibular: WNL Cervical ROM: WNL MP: 2 Dentition: False CV/HEM: CV/HEM: CAD, CHF, DVT and HTN : : Chronic renal Insufficiency GI: GI: GERD Metabolic: Metabolic: Thyroid Anesthetic Plan: ASA status: 3 Anesthesia: MAC Risk of > 500 ml blood loss (7ml/kg in children): No Meds/Allergies Current Medications: Current Medications Generic Name Dose Route Start Last Admin Trade Name Freq PRN Reason Stop Dose Admin Sodium Chloride 1,000 mls @ 30 ml s/hr 08/27/20 10:30 08/27/20 10:36 Sodium Chloride 0.9% IV 08/28/20 10:29 30 mls/hr .Q24H ROSITA Administration PFSH Anesthesia PFSH: Medical History CAD (coronary artery disease) Combined systolic and diastolic congestive heart failure Congestive heart failure Hypertension Social History (Updated 08/26/20 @ 14:20 by Isabelle Nuñez) Smoking and tobacco status: former smoker Data Anesthesia Cardiac Studies: No Data to Display
[2020-08-27] MEDS: neomycin-poly-bacitracin oint 28 gm 28 APPLIC (12:31)
--- NOTE | 2020-08-27 12:34 | PM.OP ---
Operative Report Date of procedure: August 27, 2020 Pre-op Diagnosis: Skin lesion left forearm, suspected squamous cell carcinoma skin cancer Post-op diagnosis: same Procedure Done: 1. Excision of 3.5 cm skin lesion from left forearm. 2. Intermediate layered closure of 11 cm incision. Specimens removed/disposition: As above. Surgeon: Dani Good Anesthesia: MAC Estimated blood loss (mL): 5 Complications: None. Condition: stable Disposition: same day Procedure: The patient was brought to the operating room and was placed in a supine position on the operating room table. A monitored anesthetic was induced. The left arm was draped across the front of the body and was secured with a loop of Curlex around the wrist, anchored to the other side of the bed, exposing the posterior lateral aspect of the left forearm where the skin lesion was present. The forearm was then prepped and draped in a sterile fashion. A combination of 1% lidocaine with 1 to 100,000 parts epinephrine and 0.5% bupivacaine was used for local anesthesia throughout the procedure. An elliptical incision was carried out along the longitudinal axis of the forearm, including the entire skin lesion. The skin was quite lax allowing for a generous excision. The skin was then undermined on either side of the long axes after the lesion had been completely removed using cautery. The dermis was brought back together using multiple inverted interrupted sutures of 3-0 Vicryl. The skin was approximated using multiple interrupted horizontal mattress sutures of 4-0 nylon. Some triple antibiotic ointment was placed over the incision and Telfa, Kerlix and a sterile Jaswinder wrap were then applied. The patient was taken to the outpatient recovery area in stable condition postoperatively.
[2020-08-27 12:43] VITALS: BP 138/43; PULSE 70; RESP 12; TEMP 36.2; O2SAT 98
[2020-08-27 12:50] VITALS: BP 103/67; PULSE 71; RESP 16; TEMP 37.1; O2SAT 95
--- NOTE | 2020-08-27 12:53 | P.PCN_ITS ---
PACU note PACU note: VSS, Good respiratory effort, report to DYNAMITE PACKING MACHINE FEEDER Post-Anesthesia Exam: awake
--- NOTE | 2020-08-27 12:53 | PM.PACU ---
PACU note PACU note: VSS, Good respiratory effort, report to HARVEST CREW SUPERVISOR Post-Anesthesia Exam: awake
[2020-08-27 13:01] VITALS: BP 143/50; PULSE 72; RESP 18; TEMP 37.1; O2SAT 95
[2020-08-27 13:18] VITALS: BP 167/68; PULSE 76; RESP 18; O2SAT 92
--- NOTE | 2020-08-27 13:57 | SUR.PHASEII ---
I called and spoke with Willam and let him know how the patient was doing and that he would be returning to the [facility] soon. I called and gave report to Julianna SINGLETON at [facility].
--- NOTE | 2020-08-27 15:19 | ANE.PACU2 ---
Inpatient post-anesthesia follow up: Airway intact: Yes Vital signs: Temperature 98.8 F Pulse Rate 76 Respiratory Rate 18 Blood Pressure 167/68 Pulse Oximetry 92 Oxygen Delivery Me thod Room Air Oxygen Flow Rate Fraction of Inspir ed Oxygen Hydration adequate: Yes Nausea and vomiting: No Pain level: 1 Mental status: Baseline
== END 2020-08-27 14:29 | disposition home or self-care (01) ==
PROVIDERS: PCP Family Medicine; Visit Provider Surgery
PROC: (CPT 11604; principal; 2020-08-27 11:45)
DX: C44.92 Squamous cell carcinoma of skin, unspecified (principal); I25.10 Atherosclerotic heart disease of native coronary artery without angina pectoris; I11.0 Hypertensive heart disease with heart failure; I50.40 Unspecified combined systolic (congestive) and diastolic (congestive) heart failure; Z86.718 Personal history of other venous thrombosis and embolism; E78.5 Hyperlipidemia, unspecified; J44.9 Chronic obstructive pulmonary disease, unspecified; Z79.02 Long term (current) use of antithrombotics/antiplatelets
CPT/HCPCS: 11604; 12032; 12345; 88304; J0690; J2704; J3010; J3490; J7030

== ENCOUNTER 2020-09-12 09:14 | Inpatient (IN) | payer MEDICARE, OTHER, SELFPAY ==
[2020-09-12] VITALS (52 sets, daily range): BP systolic 113–179; BP diastolic 54–121; PULSE 92–122; RESP 13–38; TEMP 36.7–37.6; O2SAT 89–98; BMI 40.3
--- NOTE | 2020-09-12 09:27 | CTR_ITS ---
PROCEDURE INFORMATION: Exam: CT Abdomen And Pelvis With Contrast Exam date and time: 09/12/2020 9:35 AM Age: 85 years old Clinical indication: Abdominal pain; Additional info: Vomiting, upper abd pain TECHNIQUE: Imaging protocol: Computed tomography of the abdomen and pelvis with contrast. Radiation optimization: All CT scans at this facility use at least one of these dose optimization techniques: automated exposure control; mA and/or kV adjustment per patient size (includes targeted exams where dose is matched to clinical indication); or iterative reconstruction. Contrast material: OMNI 300; Contrast volume: 95 ml; Contrast route: INTRAVENOUS (IV); COMPARISON: CT abdomen pelvis w con* [id number] 04/18/2018 1:06 PM RADIATION DOSE METRICS: Total DLP (mGy-cm): 1892.9 FINDINGS: Liver: The liver is homogeneous and is not enlarged. Gallbladder and bile ducts: Prior cholecystectomy. No biliary ductal dilatation allowing for that. Pancreas: No pancreatic mass. No peripancreatic inflammation. No pancreatic ductal dilation. Spleen: Calcified granulomas in a nonenlarged spleen. Adrenal glands: No adrenal mass. Kidneys and ureters: No hydronephrosis. There is a 2.5 cm simple appearing left renal cyst. Stomach and bowel: There is fluid-filled distention of the stomach as well as the mid and distal small bowel, cecum, and ascending colon up to the mid descending colon where there is an abrupt transition to relatively decompressed distal colon (602:39). The mid and distal colon contain large amount of stool. There is colonic diverticulosis without diverticulitis. The cecum does not appear to be twisted or flipped. No bowel wall thickening or pneumatosis intestinalis. Appendix: There is a distended fluid-filled appendix without periappendiceal inflammation. The distention of the appendix is felt to be secondary to the large amount of fluid in the cecum. Intraperitoneal space: Trace low-attenuation free intraperitoneal fluid. No pneumoperitoneum. Vasculature: There is coronary artery disease. No abdominal aortic aneurysm. The mesenteric arteries are patent. There is atherosclerotic plaque involving the mesenteric/splenic arteries. The mesenteric, portal, and hepatic veins are patent. Lymph nodes: No enlarged lymph nodes. Urinary bladder: The urinary bladder is decompressed with a Carpenter catheter. Reproductive: Unremarkable as visualized. Bones/joints: Slight curvature of the lumbar spine convex to the left associated with multilevel disc degeneration and facet arthropathy.There are multilevel bridging osteophytes in the spine. Soft tissues: Prior ventral hernia repair surgery. Other findings: There is fluid in the distal thoracic esophageal lumen from gastroesophageal reflux via a patulous gastroesophageal junction. CT/CT abdomen pelvis w con* [id number] IMPRESSION: Bowel obstruction at the level of the mid ascending colon. Possibly due to adhesions? COMMENTS: Consistent with the [employer]'s Incidental Findings Committee white paper (J Am Marva Radiol 2018): Any incidental renal lesion less than 1 cm or classified as too small to characterize, or any incidental cystic renal lesion characterized as simple-appearing, is likely benign. No follow-up imaging is recommended for these lesions per consensus recommendations based on imaging criteria. Radiation Dose CTDIVOL = (mGy): DLP = 1892.9 (mGy-cm)
--- NOTE | 2020-09-12 09:28 | ECG_ITS ---
[facility] ED Test Date: 2020-09-12 Pat Name: Yesi Campos Department: Room: 278 Gender: Male Lathe Winder: : 1935 Requested By: Rosio Trujillo Order Number: [id number] Adrienne MD: Denisse Lee M.D. Measurements Intervals [place] Rate: 100 P: 63 [place]: 202 QRS: -17 QRSD: 154 T: 141 QT: 398 QTc: 514 Interpretive Statements SINUS TACHYCARDIA WITH OCCASIONAL VENTRICULAR PREMATURE COMPLEXES LEFT BUNDLE BRANCH BLOCK [120+ ms QRS DURATION, 80+ ms Q/S IN V1/V2, 85+ ms R IN I/aVL/V5/V6] Compared to ECG 02/15/2020 17:26:54 Ventricular premature complex(es) now present Electronically Signed On 09-17-2020 21:11:29 CDT by Denisse Lee M.D. [id number]
--- NOTE | 2020-09-12 09:31 | ED_ITS ---
HPI - Abdominal Pain General: Chief Complaint: Abdominal Pain Stated Complaint: ABD PAIN Time Seen by Provider: 09/12/20 09:25 Source: EMS, RN notes reviewed and old records reviewed Mode of arrival: ambulatory Limitations: altered mental status History of Present Illness: HPI narrative: Patient presents by EMS from [facility] with abdominal pain and bilious vomiting for 2 days. Patient is a poor historian and has dementia called to obtain further information. Cannot ascertain any further details of the pain or quantity of vomiting Review of Systems General: Reports: ROS unobtainable due to mental status PFSH ED 2 PFSH: Medical History (Updated 09/12/20 @ 12:27 by Rosio Grimes DO) CAD (coronary artery disease) Combined systolic and diastolic congestive heart failure Congestive heart failure Hypertension Social History Smoking and tobacco status: former smoker Physical Exam Narrative: EXAM NARRATIVE: General: alert not oriented no distress, green vomitus on corner of mouth Head: atraumatic HEENT: normal eyes, normal conjunctiva, normal hearing, normal external nose, normal mouth, mucous membranes moist Neck: FROM, trachea midline Chest: normal expansion, no gross deformities Resp: normal speech, no retractions, no accessory muscle use, CTA bilaterally Cardio: regular rate and rhythm and no murmur, no peripheral edema, normal peripheral pulses GI: distended, quiet B.S., possible faint scar Right upper/lower, pt says it hurts when palpate : deferred Musculoskeletal: FROM, no pain or gross deformities Neuro: alert, dementia, tries to answer questions, no gross motor or sensory deficitys, CN II-XII grossly intact, normal coordination, normal speech Skin: no rashes Psych: cooperative, normal mood and effect Course ED course: PT A DNR Cannot get details on HPI jeff obtain labs and CT scan. cannot find any significant surgical history in chart. recent squamous/chest wall mass excisions or eval. Vital Signs: Vital signs: Vital Signs Temperature 98.5 F 09/12/20 09:15 Pulse Rate 93 09/12/20 11:25 Respiratory Rate 13 09/12/20 11:20 Blood Pressure 149/82 09/12/20 12:25 Pulse Oximetry 92 09/12/20 12:25 MDM - Abdominal Pain MDM Narrative: Medical decision making narrative: Did require several doses of Zofran while he was in the emergency department but it did resolve his vomiting. Suspicious for a small bowel obstruction on him which was confirmed on CT scan Dr. Mario general surgery was consulted and we will place an NG tube. Patient is a DNR however I did speak to his Julia Cabrales and she says if he would progress to need an operation then yes they would be willing to do that if it were to help him. I discussed with her that general surgery would want to discuss all treatment options with her he is stable for admission under the hospitalist service Differential Diagnosis: Differential diagnosis abdominal pain: Likely abdominal pain, gastroenteritis, pancreatitis and small bowel obstruction Medical Records: Attestation: I reviewed the patient's medical records. Lab Data: Attestation: I reviewed the patient's lab results. Labs: Lab Results 09/12/20 09/12/20 09/12/20 Range/Units 09:20 09:20 09:20 WBC 17.5 H (4.0-10.0) 10^3/ uL RBC 5.13 (4.1-5.3) 10^6/u L Hgb 14.8 (11.7-16.6) g/dL Hct 46.4 (42.0-52.0) % MCV 90.4 (80-94) fL MCH 28.8 (28.0-34.0) pg MCHC 31.9 (30.0-36.0) g/dL RDW 12.6 (12.1-15.1) % Plt Count 235 (130-400) 10^3/c mm MPV 10.3 (7.4-10.4) fL Neut % (Auto) 87.2 % Lymph % (Auto) 5.1 % Frontier % (Auto) 7.0 % Eos % (Auto) 0.0 % Baso % (Auto) 0.3 % Neut # (Auto) 15.29 H (1.8-7.7) 10^3/u L Lymph # (Auto) 0.9 (0.8-4.8) 10^3/u L Frontier # (Auto) 1.2 H (0.2-0.9) 10^3/u L Eos # (Auto) 0.0 (0.0-0.8) 10^3/u L Baso # (Auto) 0.1 (0.0-0.1) 10^3/u L Nucleated RBC % (a uto) 0 % Nucleated RBCs # 0.0 /100WBC Sodium 140 (136-145) mmol/L Potassium 4.2 (3.5-5.1) mmol/L Chloride 101 (98-107) mmol/L Carbon Dioxide 26 (22-29) mmol/L Anion Gap 17.2 (5-19) BUN 20 (8-23) mg/dL Creatinine 0.8 (0.7-1.2) mg/dL GFR Calculation Not Reportable Glucose 180 H (65-115) mg/dL Calculated Osmolal ity 297 H (285-295) mOsm/k g Calcium 9.6 (8.5-10.5) mg/dL Total Bilirubin 0.7 (0.15-1.2) mg/dL AST 15 (0-40) U/L ALT 12 (0-41) U/L Alkaline Phosphata se 94 (40-130) IU/L Troponin T Baselin e 58 H (0-15) ng/L Total Protein 7.6 (6.6-8.7) g/dL Albumin 3.5 (3.5-5.2) g/dL Globulin 4.1 (1.3-4.6) g/dL Lipase 7 L (13-60) U/L Urine Color (Yellow) Urine Appearance (CLEAR) Urine pH (5-7) Ur Specific Gravit y (1.005-1.030) Urine Protein (Negative) Urine Glucose (UA) (Normal) Urine Ketones (Negative) Urine Blood (Negative) Urine Nitrate (Negative) Urine Bilirubin (Negative) Urine Urobilinogen (Negative) mg/dL Ur Leukocyte Maria Alejandra ase (Negative) Urine RBC (0-2) /hpf Urine WBC (0-5) /hpf Ur Squamous Epith Cells (0-5) /hpf Amorphous Sediment Urine Bacteria (NONE) /hpf 09/12/20 Range/Units 09:50 WBC (4.0-10.0) 10^3/ uL RBC (4.1-5.3) 10^6/u L Hgb (11.7-16.6) g/dL Hct (42.0-52.0) % MCV (80-94) fL MCH (28.0-34.0) pg MCHC (30.0-36.0) g/dL RDW (12.1-15.1) % Plt Count (130-400) 10^3/c mm MPV (7.4-10.4) fL Neut % (Auto) % Lymph % (Auto) % Frontier % (Auto) % Eos % (Auto) % Baso % (Auto) % Neut # (Auto) (1.8-7.7) 10^3/u L Lymph # (Auto) (0.8-4.8) 10^3/u L Frontier # (Auto) (0.2-0.9) 10^3/u L Eos # (Auto) (0.0-0.8) 10^3/u L Baso # (Auto) (0.0-0.1) 10^3/u L Nucleated RBC % (a uto) % Nucleated RBCs # /100WBC Sodium (136-145) mmol/L Potassium (3.5-5.1) mmol/L Chloride (98-107) mmol/L Carbon Dioxide (22-29) mmol/L Anion Gap (5-19) BUN (8-23) mg/dL Creatinine (0.7-1.2) mg/dL GFR Calculation Glucose (65-115) mg/dL Calculated Osmolal ity (285-295) mOsm/k g Calcium (8.5-10.5) mg/dL Total Bilirubin (0.15-1.2) mg/dL AST (0-40) U/L ALT (0-41) U/L Alkaline Phosphata se (40-130) IU/L Troponin T Baselin e (0-15) ng/L Total Protein (6.6-8.7) g/dL Albumin (3.5-5.2) g/dL Globulin (1.3-4.6) g/dL Lipase (13-60) U/L Urine Color Yellow (Yellow) Urine Appearance Clear (CLEAR) Urine pH 5 (5-7) Ur Specific Gravit y 1.020 (1.005-1.030) Urine Protein 1+ H (Negative) Urine Glucose (UA) Norm (Normal) Urine Ketones Negative (Negative) Urine Blood 3+ H (Negative) Urine Nitrate Negative (Negative) Urine Bilirubin Neg (Negative) Urine Urobilinogen Norm (Negative) mg/dL Ur Leukocyte Maria Alejandra ase Negative (Negative) Urine RBC 5-10 H (0-2) /hpf Urine WBC None (0-5) /hpf Ur Squamous Epith Cells None (0-5) /hpf Amorphous Sediment Not Reportable Urine Bacteria Trace (NONE) /hpf Imaging Data ^: CT Abd/Pel: Attestation: I personally reviewed and interpreted this imaging study as follows: Radiologist's impression: Patient: Eric Campos #: [id number] : 1936Acct#:[id number] Age/Sex: 85 / MADM Date: 09/12/20 Loc: ERRoom/Bed: Attending Dr: Ordering Provider/Ordering MD: Rosio Grimes DO Date of Service: 09/12/20 Procedure(s): CT abdomen pelvis w con* [id number] Accession Number(s): [id number] Report Number: [id number]/CT abdomen pelvis w con* [id number] THIS REPORT CONTAINS FINDINGS THAT MAY BE CRITICAL TO PATIENT CARE. The exam findings were verbally communicated by me via telephone conference to Rosio Grimes at 12:02 PM CDT on 09/12/2020. The findings were acknowledged and understood. Radiation Dose CTDIVOL = (mGy): DLP = 1892.9 (mGy-cm) Addendum Dictated By: Godwin Abel Addendum Signed By: Kathy Abel Date/Time:09/12/20 1214 Addendum Cosigned By: PROCEDURE INFORMATION: Exam: CT Abdomen And Pelvis With Contrast Exam date and time: 09/12/2020 9:35 AM Age: 85 years old Clinical indication: Abdominal pain; Additional info: Vomiting, upper abd pain TECHNIQUE: Imaging protocol: Computed tomography of the abdomen and pelvis with contrast. Radiation optimization: All CT scans at this facility use at least one of these dose optimization techniques: automated exposure control; mA and/or kV adjustment per patient size (includes targeted exams where dose is matched to clinical indication); or iterative reconstruction. Contrast material: OMNI 300; Contrast volume: 95 ml; Contrast route: INTRAVENOUS (IV); COMPARISON: CT abdomen pelvis w con* [id number] 04/18/2018 1:06 PM RADIATION DOSE METRICS: Total DLP (mGy-cm): 1892.9 FINDINGS: Liver: The liver is homogeneous and is not enlarged. Gallbladder and bile ducts: Prior cholecystectomy. No biliary ductal dilatation allowing for that. Pancreas: No pancreatic mass. No peripancreatic inflammation. No pancreatic ductal dilation. Spleen: Calcified granulomas in a nonenlarged spleen. Adrenal glands: No adrenal mass. Kidneys and ureters: No hydronephrosis. There is a 2.5 cm simple appearing left renal cyst. Stomach and bowel: There is fluid-filled distention of the stomach as well as the mid and distal small bowel, cecum, and ascending colon up to the mid descending colon where there is an abrupt transition to relatively decompressed distal colon (602:39). The mid and distal colon contain large amount of stool. There is colonic diverticulosis without diverticulitis. The cecum does not appear to be twisted or flipped. No bowel wall thickening or pneumatosis intestinalis. Appendix: There is a distended fluid-filled appendix without periappendiceal inflammation. The distention of the appendix is felt to be secondary to the large amount of fluid in the cecum. Intraperitoneal space: Trace low-attenuation free intraperitoneal fluid. No pneumoperitoneum. Vasculature: There is coronary artery disease. No abdominal aortic aneurysm. The mesenteric arteries are patent. There is atherosclerotic plaque involving the mesenteric/splenic arteries. The mesenteric, portal, and hepatic veins are patent. Lymph nodes: No enlarged lymph nodes. Urinary bladder: The urinary bladder is decompressed with a Carpenter catheter. Reproductive: Unremarkable as visualized. Bones/joints: Slight curvature of the lumbar spine convex to the left associated with multilevel disc degeneration and facet arthropathy.There are multilevel bridging osteophytes in the spine. Soft tissues: Prior ventral hernia repair surgery. Other findings: There is fluid in the distal thoracic esophageal lumen from gastroesophageal reflux via a patulous gastroesophageal junction. CT/CT abdomen pelvis w con* [id number] IMPRESSION: Bowel obstruction at the level of the mid ascending colon. Possibly due to adhesions? COMMENTS: Consistent with the [employer]'s Incidental Findings Committee white paper (J Am Marva Radiol 2018): Any incidental renal lesion less than 1 cm or classified as too small to characterize, or any incidental cystic renal lesion characterized as simple-appearing, is likely benign. No follow-up imaging is recommended for these lesions per consensus recommendations based on imaging criteria. Discharge Plan Discharge Patient Disposition: Admitted As Inpatient Clinical Impression: Abdominal pain Qualifiers: Abdominal location: generalized Qualified Code(s): R10.84 - Generalized abdominal pain Vomiting Qualifiers: Vomiting type: unspecified Vomiting Intractability: unspecified Nausea presence: unspecified Qualified Code(s): R11.10 - Vomiting, unspecified Bowel obstruction Qualifiers: Intestinal obstruction type: unspecified Intestinal obstruction extent: partial Qualified Code(s): K56.600 - Partial intestinal obstruction, unspecified as to cause Condition: Stable Coding Level of Care Code ED Lunchroom Mother for Bhavin Gibson
[2020-09-12] MEDS: ondansetron 2 mg/ML SDV 2 mL 4 MG IVP (09:33)
[2020-09-12 10:05] LABS: Basophils # 0.1 10^3/uL (0.0-0.1); Basophils % 0.3 %; Hematocrit 46.4 % (42.0-52.0); Hemoglobin 14.8 g/dL (11.7-16.6); Lymphocytes # 0.9 10^3/uL (0.8-4.8); Lymphocytes % 5.1 %; Mean Corpuscular HGB Conc 31.9 g/dL (30.0-36.0); Mean Corpuscular Hemoglobin 28.8 pg (28.0-34.0); Mean Corpuscular Volume 90.4 fL (80-94); Mean Platelet Volume 10.3 fL (7.4-10.4); Monocytes # 1.2 10^3/uL (0.2-0.9); Neutrophils # 15.29 10^3/uL (1.8-7.7); Neutrophils % 87.2 %; Nucleated Red Blood Cells % 0 %; Platelet Count 235 10^3/cmm (130-400); Red Blood Count 5.13 10^6/uL (4.1-5.3); Red Cell Distribution Width 12.6 % (12.1-15.1); White Blood Count 17.5 10^3/uL (4.0-10.0)
[2020-09-12 10:13] LABS: Urine Appearance Clear (CLEAR); Urine Color Yellow (Yellow); pH Urine 5 (5-7)
[2020-09-12 10:14] LABS: Add Urine Culture? No; Bacteria Urine TRACE /hpf; Bilirubin Urine Neg (Negative); Blood Urine 3+ (Negative); Glucose Urine UA Norm (Normal); Ketones Urine Negative (Negative); Leukocyte Esterase Urine Negative (Negative); Nitrate Urine Negative (Negative); Protein Urine 1+ (Negative); Urobilinogen Urine Norm (Negative)
[2020-09-12 10:22] LABS: Alanine Aminotransferase 12 U/L (0-41); Albumin Level 3.5 g/dL (3.5-5.2); Alkaline Phosphatase 94 IU/L (40-130); Anion Gap 17.2 (5-19); Aspartate Amino Transferase 15 U/L (0-40); Blood Urea Nitrogen 20 mg/dL (8-23); Calcium 9.6 mg/dL (8.5-10.5); Carbon Dioxide 26 mmol/L (22-29); Chloride 101 mmol/L (98-107); Globulin 4.1 g/dL (1.3-4.6); Glucose 180 mg/dL (65-115); Lipase 7 U/L (13-60); Osmolality Calculated 297 mOsm/kg (285-295); Potassium 4.2 mmol/L (3.5-5.1); Sodium 140 mmol/L (136-145); Total Bilirubin 0.7 mg/dL (0.15-1.2); Total Protein 7.6 g/dL (6.6-8.7)
[2020-09-12 10:23] LABS: Troponin(5th) Baseline 58 ng/L (0-15)
[2020-09-12] MEDS: iohexol 300 mg/mL 100 mL Btl IV (11:14)
[2020-09-12] MEDS: sodium chloride 0.9% 1,000 ML 125 ML IV ×2 (13:12→21:56)
[2020-09-12] MEDS: LORazepam 2 mg/mL INJ 1 mL 0.5 MG IVP (13:13)
--- NOTE | 2020-09-12 14:36 | XRR_ITS ---
PROCEDURE INFORMATION: Exam: XR Chest Exam date and time: 09/12/2020 2:37 PM Age: 85 years old Clinical indication: Device placement; Ng tube; Additional info: Ng placement TECHNIQUE: Imaging protocol: XR of the chest Views: 1 view. COMPARISON: CR XR chest 1V portable [id number] 02/15/2020 11:12 AM FINDINGS: Tubes, catheters and devices: NG tube is in place extending into the stomach. Lungs: Low lung volumes are seen. The lungs are otherwise clear. No consolidation. Pleural spaces: Unremarkable. No pleural effusion. No pneumothorax. Heart/Mediastinum: Unremarkable. No cardiomegaly. Bones/joints: Unremarkable. XR/XR chest 1V portable [id number] IMPRESSION: 1. No acute findings. 2. NG tube is in the stomach
--- NOTE | 2020-09-12 16:25 | XRR_ITS ---
PROCEDURE INFORMATION: Exam: XR Chest Exam date and time: 09/12/2020 4:44 PM Age: 85 years old Clinical indication: Device placement; Ng tube; Additional info: Ng tube insertion TECHNIQUE: Imaging protocol: XR of the chest Views: 1 view. COMPARISON: CR (CHEST, ) 09/12/2020 2:46 PM FINDINGS: Tubes, catheters and devices: The NG tube has been retracted the distal side hole is now just distal to the EG junction. Lungs: Low lung volumes seen. No consolidation. Pleural spaces: Unremarkable. No pleural effusion. No pneumothorax. Heart/Mediastinum: Unremarkable. No cardiomegaly. Bones/joints: Unremarkable. XR/XR chest 1V portable [id number] IMPRESSION: 1. No acute findings.. 2. Retracted NG tube as described
--- NOTE | 2020-09-12 18:27 | PM.HP ---
Providers/Chief Complaint Admitting Physician: Varun Gill Primary Care Provider: Jimbo López MD Chief Complaint: ABD PAIN History of Present Illness 85-year-old gentleman with dementia brought in from residential due to multiple episodes of emesis. Abdomen does not feel comfortable, however. He does not remember having emesis. He does know he is in the hospital. Does not remember the year. Is not able to provide much history. Currently is feeling having little bit harder time catching his breath. In the ER he is assessed by CT abdomen pelvis with contrast, with finding of bowel obstruction to level of mid ascending colon. Possibly due to adhesions. Surgical history unknown, but appears to have had prior cholecystectomy. At residential he is bed/wheelchair bound with a Minesh lift. Usually eats a regular diet. They deny any NSAID use or any steroids recently, although were having trouble reviewing his medications there. He did not get any of that morning medications today apart from Zofran. Review of Systems Narrative: Provides very limited review of systems Const: Denies: fever(s) or body aches Eyes: Denies: change in vision or eye redness ENMT: Denies: throat pain Card: Denies: chest pain, edema, pre-syncope or dyspnea on exertion Resp: Reports: dyspnea; Denies: productive cough or hemoptysis GI: Reports: nausea and vomiting; Denies: abdominal pain, diarrhea, hematochezia or melena : Denies: flank pain or hematuria Musc: Denies: back pain, joint swelling or joint redness Skin/Breast: Denies: rash, sores or new lesions Neuro: Denies: headache(s) or dizziness Elton/Lymph: Denies: easy bleeding Medications/Allergies Home Medications Medication Instructions Recorded Confirmed Last Taken Type aspirin 81 mg PO DAILY@79902/15/20 09/12/20 09/12/20 History clopidogrel 75 mg PO DAILY@79902/15/20 09/12/20 09/12/20 History ferrous gluconate 324 mg PO DAILY@79902/15/20 09/12/20 09/12/20 History levothyroxine 25 mcg PO DAILY@59902/15/20 09/12/20 09/12/20 History metoprolol succinate 25 mg PO BID 02/15/20 09/12/20 09/12/20 History oxycodone 5 mg PO BID PRN 02/15/20 09/12/20 08/26/20 History pantoprazole 40 mg PO DAILY@0800 02/15/20 09/12/20 09/12/20 History pravastatin 40 mg PO BEDTIME 02/15/20 09/12/20 09/11/20 History sertraline 50 mg PO DAILY@0800 02/15/20 09/12/20 09/12/20 History tamsulosin 0.4 mg PO DAILY@0800 02/15/20 09/12/20 09/12/20 History trazodone 25 mg PO BEDTIME 02/15/20 09/12/20 09/11/20 History acetaminophen [Tylenol] 650 mg PO BID 08/26/20 09/12/20 09/12/20 History ondansetron HCl [Zofran] 4 mg PO Q8H PRN 08/26/20 09/12/20 09/12/20 History acetaminophen [Tylenol Extra 1,000 mg PO Q4H PRN 09/12/20 09/12/20 Unknown History Strength] bisacodyl [Dulcolax (bisacodyl)] 10 mg [place] DAILY PRN 09/12/20 09/12/20 Unknown History calcium carbonate [Tums] 2 tab PO DAILY PRN 09/12/20 09/12/20 Unknown History cholecalciferol (vitamin D3) 25 mcg PO DAILY@0800 09/12/20 09/12/20 09/12/20 History [Vitamin D3] clotrimazole 1 applic TOPICAL BID PRN 09/12/20 09/12/20 Unknown History magnesium hydroxide [Milk of 30 ml PO DAILY PRN 09/12/20 09/12/20 Unknown History Magnesia] nystatin [Nystop] 1 applic TOPICAL BID PRN 09/12/20 09/12/20 Unknown History polyethylene glycol 3350 [Miralax] 17 g PO DAILY@0800 09/12/20 09/12/20 09/12/20 History sodium phosphates [Fleet Enema] 118 ml [place] DAILY PRN 09/12/20 09/12/20 Unknown History Allergies Allergy/AdvReac Type Severity Reaction Status Date / Time No Known Allergies Allergy Verified 09/04/20 11:59 PFSH Acute PFSH: Medical History (Updated 09/12/20 @ 19:20 by Varun Gill MD) CAD (coronary artery disease) Combined systolic and diastolic congestive heart failure Congestive heart failure Hypertension Surgical History Hx of cholecystectomy Family History Father CHF (congestive heart failure) Brother CHF (congestive heart failure) Social History Smoking and tobacco status: former smoker Alcohol intake: former Substance/Drug Use: never Housing: Skilled Nursing Marital status: Current occupational status: retired Vitals/I&O/Wt Last Vital Signs Temp 98.0 F 09/12/20 15:11 Pulse 93 09/12/20 15:11 Resp 19 H 09/12/20 15:11 BP 141/74 09/12/20 15:11 Pulse Ox 93 09/12/20 15:11 09/12/20 09/12/20 09/12/20 06:59 14:59 22:59 Output Total 1075 / 1075 Balance -1075 / -1075 Weight last 48 hrs Weight 113.398 kg Physical Exam Const: COMMON NORMALS: no acute distress GENERAL APPEARANCE: frail appearing NUTRITIONAL APPEARANCE: obese ORIENTATION/CONSCIOUSNESS: Yes oriented to person and Yes oriented to place; not oriented to time HENMT: COMMON NORMALS: oropharynx normal NOSE: Other nasal findings present (NGT in place) Neck/C-Spine: COMMON NORMALS: no JVD Resp: COMMON NORMALS: clear to auscultation bilaterally EFFORT & INSPECTION: Yes labored and No uses accessory muscles AUSCULTATION: clear to auscultation bilaterally Cardio: COMMON NORMALS: no JVD, regular rhythm, S1 normal heart sound present, S2 normal heart sound present and No murmurs present (Cardio) RHYTHM: regular rhythm HEART SOUNDS: S1 normal heart sound present and S2 normal heart sound present GI: COMMON NORMALS: Soft to palpation and non-tender INSPECTION: Yes abdominal distension PALPATION: Yes Soft to palpation Extremity: COMMON NORMALS: no joint enlargement and no pedal edema Neuro: COMMON NORMALS: patient oriented x3 and moves all extremities Skin: COMMON NORMALS: no rashes or lesions noted GENERAL SKIN EXAM: no rashes or lesions noted OTHER: Sacrum not examined at this time. Urinary Catheter Management^: Carpenter: Cath Placed During This Visit: yes Reason for Continuing Indwelling Catheter: Acute Urinary Retention or Obstruction Urinary Catheter Date of Insertion: 09/12/20 Urinary Catheter Time of Insertion: 09:50 Data : 09/12/20 09:20 09/12/20 09:20 A&P Assessment and plan (1) Bowel obstruction: Required several doses of Zofran in ER. NG tube placed. Initially unsuccessful. Placed upstairs successfully with 500 mL out initially and so far 750. He is having some abdominal discomfort, but not vomiting. There are small amounts of bloody contents mixed in, possibly secondary to gastritis or mucosal tear. Abdomen otherwise soft, he is not in severe pain. Continue NGT to LIS decompression. One-to-one sitter as he keeps his hands very close to the NG tube, and this was difficult to insert requiring several attempts. Zofran as needed. PPI. Breathing appears to be perhaps very slightly labored, perhaps due to abdominal distention as opposed to mild pneumonitis after vomiting. Does have leukocytosis, although saturating in the 90s on room air. Monitor condition. Status: Acute Qualifiers: Intestinal obstruction extent: partial Intestinal obstruction type: unspecified Qualified Code(s): K56.600 - Partial intestinal obstruction, unspecified as to cause (2) GI bleed: PPI IV twice daily. Monitor hemoglobin. Status: Acute (3) Troponin level elevated: Chronic elevation. Previously assessed by cardiology. Patient and family declined invasive intervention has been receiving aspirin. Holding oral medications for now. Hold aspirin in case contributing to gastritis. Status: Acute (4) Microscopic hematuria: Consider reassessment for resolution. Status: Acute Additional A&P Information CHF HTN Bed/wheelchair bound Attestations Medical Necessity Statement*: Admission of over 2 midnights is going to be needed for assessment and management of this 85-year-old gentleman with large bowel obstruction, GI bleeding, with underlying CAD and CHF. Coding Level of Care Code Acute Hired Hand for [facility] Diagnoses Bowel obstruction K56.600 Intestinal obstruction extent: partial Intestinal obstruction type: unspecified GI bleed K92.2 Troponin level elevated R77.8 Microscopic hematuria R31.29
[2020-09-12] MEDS: pantoprazole 40 mg SDV IVP (21:45)
[2020-09-13] VITALS: BP 97/56; PULSE 110; RESP 20; TEMP 36.4; O2SAT 92
[2020-09-13 04:00] VITALS: BP 144/76; PULSE 100; RESP 21; TEMP 36.9; O2SAT 92
[2020-09-13] MEDS: sodium chloride 0.9% 1,000 ML 125 ML IV ×2 (06:07→13:24)
[2020-09-13 07:15] VITALS: BP 158/77; PULSE 107; RESP 17; TEMP 37; O2SAT 93
[2020-09-13 07:32] LABS: Basophils # 0.1 10^3/uL (0.0-0.1); Basophils % 0.6 %; Eosinophils # 0.1 10^3/uL (0.0-0.8); Eosinophils % 0.7 %; Hematocrit 44.8 % (42.0-52.0); Hemoglobin 13.9 g/dL (11.7-16.6); Lymphocytes # 1.1 10^3/uL (0.8-4.8); Lymphocytes % 10.9 %; Mean Corpuscular Hemoglobin 29.2 pg (28.0-34.0); Mean Corpuscular Volume 94.1 fL (80-94); Mean Platelet Volume 10.3 fL (7.4-10.4); Monocytes # 1.2 10^3/uL (0.2-0.9); Neutrophils % 75.3 %; Nucleated Red Blood Cells % 0 %; Platelet Count 214 10^3/cmm (130-400); Red Blood Count 4.76 10^6/uL (4.1-5.3); Red Cell Distribution Width 13.2 % (12.1-15.1)
[2020-09-13 08:10] LABS: Alanine Aminotransferase 9 U/L (0-41); Albumin Level 2.7 g/dL (3.5-5.2); Alkaline Phosphatase 68 IU/L (40-130); Anion Gap 12.6 (5-19); Aspartate Amino Transferase 13 U/L (0-40); Blood Urea Nitrogen 36 mg/dL (8-23); Calcium 8.9 mg/dL (8.5-10.5); Carbon Dioxide 24 mmol/L (22-29); Chloride 108 mmol/L (98-107); Globulin 3.1 g/dL (1.3-4.6); Glucose 159 mg/dL (65-115); Osmolality Calculated 304 mOsm/kg (285-295); Potassium 3.6 mmol/L (3.5-5.1); Sodium 141 mmol/L (136-145); Total Bilirubin 1.2 mg/dL (0.15-1.2); Total Protein 5.8 g/dL (6.6-8.7)
[2020-09-13] MEDS: pantoprazole 40 mg SDV IVP (08:41)
[2020-09-13 10:34] VITALS: BP 178/80; PULSE 116; RESP 18; TEMP 38; O2SAT 91
--- NOTE | 2020-09-13 10:52 | PC.NURSE ---
Dr Gill notified via Voalte messaging of B/P 179/80. Pt NPO , NG to suction. Pt has metoprolol as home med. Pt also febrile 100.4 F, No acetaminophen ordered. Dr Acknowledged receipt of message. NO new orders at this time.
--- NOTE | 2020-09-13 11:06 | PC.NURSE ---
NG partially out, pulled by patient per sitter. Turned off suction. Re-advanced it back it. Verified placement with auscultation. Secured with venigaurd Back to intermittent wall suction. Pt tolerated well. Sitter at bedside holding pt's hand.
--- NOTE | 2020-09-13 12:16 | P.CONIM_ITS ---
Providers/Reason For Consult Consulting Physican/Specialty*: Varun Gill Reason for Consult*: Bowel obstruction Attending Physician: Varun Gill Primary Care Provider: Jimbo López MD History of Present Illness History of Present Illness Information obtained from patient's chart as patient is not very communicative today. Yesi Campos is a 85 year old male who is brought from the [place] [facility] with complaints of abdominal pain and vomiting for the last 2 days. Patient has dementia and therefore limited information was obtained regarding prior surgeries. Today he states he has mild abdominal pain, no nausea vomiting. He has an NG tube in place and had couple of bowel movements. Review of Systems General: Reports: ROS unobtainable due to medical condition Meds/Allergies Home Medications and Allergies Home Medications Medication Instructions Recorded Confirmed Last Taken Type aspirin 81 mg PO DAILY@79902/15/20 09/12/20 09/12/20 History clopidogrel 75 mg PO DAILY@79902/15/20 09/12/20 09/12/20 History ferrous gluconate 324 mg PO DAILY@79902/15/20 09/12/20 09/12/20 History levothyroxine 25 mcg PO DAILY@0602/15/20 09/12/20 09/12/20 History metoprolol succinate 25 mg PO BID 02/15/20 09/12/20 09/12/20 History oxycodone 5 mg PO BID PRN 02/15/20 09/12/20 08/26/20 History pantoprazole 40 mg PO DAILY@79902/15/20 09/12/20 09/12/20 History pravastatin 40 mg PO BEDTIME 02/15/20 09/12/20 09/11/20 History sertraline 50 mg PO DAILY@79902/15/20 09/12/20 09/12/20 History tamsulosin 0.4 mg PO DAILY@79902/15/20 09/12/20 09/12/20 History trazodone 25 mg PO BEDTIME 02/15/20 09/12/20 09/11/20 History acetaminophen [Tylenol] 650 mg PO BID 08/26/20 09/12/20 09/12/20 History ondansetron HCl [Zofran] 4 mg PO Q8H PRN 0309/12/20 09/12/20 History acetaminophen [Tylenol Extra 1,000 mg PO Q4H PRN 09/12/20 09/12/20 Unknown History Strength] bisacodyl [Dulcolax (bisacodyl)] 10 mg [place] DAILY PRN 09/12/20 09/12/20 Unknown History calcium carbonate [Tums] 2 tab PO DAILY PRN 09/12/20 09/12/20 Unknown History cholecalciferol (vitamin D3) 25 mcg PO DAILY@0800 09/12/20 09/12/20 09/12/20 History [Vitamin D3] clotrimazole 1 applic TOPICAL BID PRN 09/12/20 09/12/20 Unknown History magnesium hydroxide [Milk of 30 ml PO DAILY PRN 09/12/20 09/12/20 Unknown History Magnesia] nystatin [Nystop] 1 applic TOPICAL BID PRN 09/12/20 09/12/20 Unknown History polyethylene glycol 3350 [Miralax] 17 g PO DAILY@0800 09/12/20 09/12/20 09/12/20 History sodium phosphates [Fleet Enema] 118 ml MN DAILY PRN 09/12/20 09/12/20 Unknown History Allergies Allergy/AdvReac Type Severity Reaction Status Date / Time No Known Allergies Allergy Verified 09/04/20 11:59 Current Medications Current Medications Generic Name Dose Route Start Last Admin Trade Name Freq PRN Reason Stop Dose Admin Sodium Chloride 1,000 mls @ 125 mls/hr 09/12/20 12:30 09/13/20 06:07 Sodium Chloride 0.9% IV 125 mls/hr .Q8H ROSITA Administration Pantoprazole Sodium 40 mg 09/12/20 19:00 09/13/20 08:41 Pantoprazole 40 Mg Sdv IVP 40 mg Q12H ROSITA Administration PFSH Acute PFSH: Medical History CAD (coronary artery disease) Combined systolic and diastolic congestive heart failure Congestive heart failure Hypertension Surgical History Hx of cholecystectomy Family History Father CHF (congestive heart failure) Brother CHF (congestive heart failure) Social History Smoking and tobacco status: former smoker Alcohol intake: former Substance/Drug Use: never Housing: [facility] Marital status: Current occupational status: retired Vitals/I&O/Wt Last Vital Signs Temp 100.4 F H 09/13/20 10:34 Pulse 116 H 09/13/20 10:34 Resp 18 09/13/20 10:34 BP 178/80 09/13/20 10:34 Pulse Ox 91 09/13/20 10:34 09/12/20 09/13/20 09/13/20 22:59 06:59 14:59 Intake Total 1000 / 1999 1000 / 1999 Output Total 1075 / 1225 150 / 1225 250 / 250 Balance -75 / 775 850 / 775 -250 / -250 Weight last 48 hrs Weight 228 lb 11.2 oz Weight 250 lb Physical Exam Narrative: EXAM NARRATIVE: HEENT: Normocephalic Eye: Sclera /conjunctiva normal Respiratory and chest: Bilateral clear breath sounds on auscultation Cardiovascular: Normal S1 and S2 heart sounds Abdomen: Soft to palpation, distended, minimally tender, no guarding or rigidity, patient has a well-healed right transverse supraumbilical scar and the infraumbilical laparotomy midline scar Neurological: Oriented to place person and time Skin: Intact, no lesions appreciated on gross exam Urinary Catheter Management^: Carpenter: Cath Placed During This Visit: yes Reason for Continuing Indwelling Catheter: Acute Urinary Retention or Obstruction Urinary Catheter Date of Insertion: 09/12/20 Urinary Catheter Time of Insertion: 09:50 A&P Assessment and plan (1) Colonic obstruction: 85-year-old male who is a [place] [facility] resident who presents with abdominal pain, nausea and vomiting, noted on physical exam to have no significant peritonitis and scar suggestive of 2 prior abdominal surgeries. I reviewed the CT abdomen pelvis performed yesterday which showed dilated small bowel loop and obstruction in the ascending colon, no intraluminal masses noted likely secondary to adhesions. Patient did have bowel movements today and therefore will try magnesium citrate through the NG tube and enemas. Abdominal series in the morning Medical management as per hospitalist service As per nursing staff there has been no contact with family Status: Acute Coding Level of Care Code Acute Concrete Curer for [facility] Diagnoses Colonic obstruction K56.609
[2020-09-13 13:19] VITALS: RESP 24
[2020-09-13] MEDS: morphine 4 mg/mL SDV 1 mL 2 MG IVP (13:19)
[2020-09-13] MEDS: magnesium citrate Btl 296 mL NG-TUBE (13:24)
--- NOTE | 2020-09-13 14:05 | PC.NURSE ---
Pt doing worse. Mag citrate admin per NG as ordered. Morphine admin for abdominal pain. Pt tachypneic. Milk and molasses enema admin as ordered. Most of enema ran back out.
--- NOTE | 2020-09-13 14:16 | PC.NURSE ---
Pt 's condition has worsened. HR, B/P and respirations all elevated , temp. has increased to 100.8, pt's abdomen to his knees mottling. Pt received eneam, it ran back out, pt received Mag citrate via NG, NG still clamped. Dr Gill notified via telephone. came to bedside to evaluate. Orders received.
--- NOTE | 2020-09-13 14:46 | PC.NURSE ---
Pt's condition continues to deteriorate. His heart rate around 140, pulse weak and thready. His skin is clammy now. His SBP now 104. Tem 100.[address] Gill notified of these changes and pt needs to be transferred to ICU. Dr Gill going to put in transfer orders and a STAT CTA order. Discussed fluid bolus, but changed it to Albumin as pt does have crackles in right lung now.
--- NOTE | 2020-09-13 15:00 | PC.NURSE ---
Unable to reach CT at this time. Called Dr Chacko: notified of O2 at 2lpm/NC placed on pt as his O2 sats dropped to 88%. Dr Escoto's. If can't reach CT just take straight to ICU.
--- NOTE | 2020-09-13 15:20 | PC.NURSE ---
During transferring to ICU, pt started bobbing his head while breathing, O2 increased to 4lpm/NC. Pt gets paler then brown froth comes out of his mouth while in elevator. Pt not breathing upon entering ICU, Pt's color whiter, cannot find heart beat. NG to suction dark black/ maroon liquid noted draining. unable to feel pulse or hear heart beat. Dr iGll notified via telephone.
--- NOTE | 2020-09-13 15:29 | PM.DDS ---
Discharge Providers DDS Date of Admission: 09/12/20 12:44 Date Summary Completed: 09/13/20 Attending Provider at Admission: Varun Gill Time of : 15:15 Attending Provider at Discharge: Varun Gill Primary Care Provider: MD KARL Chua Diagnoses Hospital Diagnoses (1) Colonic obstruction: Reason for Visit Reason for Visit: ABD PAIN Summary Date and Time of Date of : 09/13/20 Time of : 15:15 Summary Summary: 85-year-old gentleman alf resident due to nonambulatory status, Minesh lift transfers, with combined systolic and diastolic congestive heart failure, EF 20-25%, aortic stenosis, suspected CAD, assessed in February by cardiology, but he and family declined additional more invasive assessments and interventions, history of cholecystectomy. His power of consultant luxury and auto. vice president [employer] (ex ) is his son Willam Walls. He was admitted for assessment and management due to episodes of bilious emesis at the alf, abdominal pain, with finding of bowel obstruction to level of mid ascending colon in ER possibly due to adhesions. Abdomen was distended but soft. He underwent upper GI decompression with NG tube with LIS, was maintained on bowel rest, was assessed by surgery, with recommendation for bowel regimen and enema. Due to blood-tinged gastric secretions he was started on PPI and antiplatelets were held due to concern for component of GI bleed with mucosal disruption after vomiting or aspirin induced gastritis. After vomiting developed pneumonitis with unremarkable chest x-ray but exacerbated by abdominal distention, as was noted to be mildly tachypneic. Saturations on room air in low 90s, but were improving without cough or chest pain. This morning was given magnesium citrate, received an enema, but still with minimal bowel movement. This afternoon his nurse noticed his condition worsened, he was becoming more tachycardic, earlier this morning had a low-grade fever 100.4. But had worsening abdominal pain and she noticed new skin mottling on lower extremities. I came back to revisit with him. With worsening abdominal pain, decrease in blood pressure, worsening tachycardia, low-grade fever, decrease in blood pressure to 104/68, skin mottling, lactic acid level, blood culture, empiric antibiotic was requested in case of possible sepsis, bolus of albumin (as he was already receiving IV fluids, with reported new crackles and underlying CHF), stat abdomen pelvis CTA to assess for possible bowel ischemia, perforation, or other life-threatening condition with transfer to ICU for continued management pending imaging results. Worsening in condition was discussed with the surgeon and his son, including possibility of needing urgent surgery, although mortality and other complication risk would be high in case of need for surgical exploration given severity of his underlying comorbidities. On the way to the CTA he rapidly decompensated. Became unresponsive. Respirations and pulse were lost, and regurgited bloody fluid from his mouth. CPR was not initiated as per his and his family's prior wishes. Time of was noted at 1515. His family were notified of his passing and declined an autopsy. Additional Data Advance directives?: No Discharge Plan Discharge Patient Disposition: Condition: Stable Prescriptions: No Action trazodone 50 mg tablet 25 mg PO BEDTIME RF: 0 clopidogrel 75 mg tablet 75 mg PO DAILY@0800 RF: 0 levothyroxine 25 mcg tablet 25 mcg PO DAILY@0600 RF: 0 pravastatin 80 mg tablet 40 mg PO BEDTIME RF: 0 tamsulosin 0.4 mg capsule 0.4 mg PO DAILY@0800 RF: 0 pantoprazole 40 mg tablet,delayed release (DR/EC) 40 mg PO DAILY@0800 RF: 0 aspirin 81 mg Tablet,Chewable 81 mg PO DAILY@0800 RF: 0 metoprolol succinate 25 mg tablet extended release 24 hr 25 mg PO BID RF: 0 sertraline 50 mg tablet 50 mg PO DAILY@0800 RF: 0 oxycodone 5 mg tablet 5 mg PO BID PRN (Reason: Pain) RF: 0 ferrous gluconate 324 mg (38 mg iron) tablet 324 mg PO DAILY@0800 RF: 0 acetaminophen [Tylenol] 325 mg Tablet 650 mg PO BID RF: 0 ondansetron HCl [Zofran] 4 mg Tablet 4 mg PO Q8H PRN (Reason: Nausea) RF: 0 Tums 300 mg (750 mg) Tablet,Chewable 2 tab PO DAILY PRN (Reason: Indigestion) RF: 0 Tylenol Extra Strength 500 mg Tablet 1,000 mg PO Q4H PRN (Reason: Pain) RF: 0 Milk of Magnesia 400 mg/5 mL Suspension 30 ml PO DAILY PRN (Reason: Constipation) RF: 0 Dulcolax (bisacodyl) 10 mg Suppository 10 mg [place] DAILY PRN (Reason: Constipation) RF: 0 Fleet Enema 19-7 gram/118 mL Enema 118 ml [place] DAILY PRN (Reason: Constipation) RF: 0 Nystop 100,000 unit/gram Powder 1 applic TOPICAL BID PRN (Reason: redness) RF: 0 Miralax 17 gram/dose Powder 17 g PO DAILY@0800 RF: 0 clotrimazole 1 % Cream 1 applic TOPICAL BID PRN (Reason: redness) RF: 0 Vitamin D3 25 mcg (1,000 unit) Tablet 25 mcg PO DAILY@0800 RF: 0 Referrals: Jimbo López MD [Primary Care Provider] - Patient Instructions: Abdominal Pain (ED) DS Attestations Time Spent in /Discharge Care*: greater than 30 min Quality - AMI: AMI present?: No Quality - Stroke: CVA present?: No Symptom Onset Unknown: No Quality - VTE: VTE present?: No Deep Vein Thrombosis/Pulmonary Embolism Present on Admission: No Coding Level of Care Code Acute 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
--- NOTE | 2020-09-13 15:43 | PC.NURSE ---
1515 recieved pt from 2nd floor agonal respirations noted with bloody brown sputum from mouth sx airway and connected ng to suction with return of secretions large amts of about 700 cc laced on monitor agonal rhythm with no pulse EMD noted ....no family here Doctor notified and checkout supervisor. MTS notified and family post mortom care done and jesus villegas called
--- NOTE | 2020-09-13 16:16 | PC.NURSE ---
TOD 1515.
--- NOTE | 2020-09-13 16:57 | PC.NURSE ---
jesus villegas here reased at this time
== END 2020-09-13 15:20 | disposition expired | DRG 389 ==
LOC: ER 13:14 → MEDSURG 13:21 → ICU 09-13 15:19
PROVIDERS: Admitting Provider Internal Medicine; Emergency Provider Emergency Medicine; PCP Family Medicine; Visit Provider Internal Medicine
DX: K56.51 Intestinal adhesions [bands], with partial obstruction (principal); K92.2 Gastrointestinal hemorrhage, unspecified; I50.42 Chronic combined systolic (congestive) and diastolic (congestive) heart failure; R77.8 Other specified abnormalities of plasma proteins; R31.29 Other microscopic hematuria; I25.10 Atherosclerotic heart disease of native coronary artery without angina pectoris; F03.90 Unspecified dementia, unspecified severity, without behavioral disturbance, psychotic disturbance, mood disturbance, and anxiety; I11.0 Hypertensive heart disease with heart failure; Z79.82 Long term (current) use of aspirin; Z79.02 Long term (current) use of antithrombotics/antiplatelets; Z79.891 Long term (current) use of opiate analgesic; Z99.3 Dependence on wheelchair; Z87.891 Personal history of nicotine dependence
CPT/HCPCS: 36415; 51702; 71045; 74177; 80053; 81001; 83690; 84484; 85025; 93005; 96361; 96374; 96375; 99291; C9113; J2060; J2270; J2405; J7030; Q9967